=== PATIENT | male | born 1945 | race Two or more races ===

== ENCOUNTER 2017-11-28 13:14 | Inpatient (IN) | payer MEDICARE, OTHER ==
--- NOTE | 2017-11-28 13:51 | ERNOTE ---
Medical Problem HPI - Narrative Date of Service: 11/28/17 - General Chief Complaint: General Assessment Time Seen by Provider: 11/28/17 13:28 Source: patient Exam Limitations: no limitations - Immun/Allergies/Home Medications Immunizations: IMMUNIZATION HX History of Influenza Vaccine Yes Allergies/Adverse Reactions: Allergies No Known Allergies Allergy (Unverified 11/28/17 13:26) Home Medications: HOME MEDICATIONS ALPRAZolam [Xanax] 0.25 mg PO BID 11/28/17 [Last Taken Unknown] FLUoxetine HCL [Prozac] 40 mg PO DAILY 11/28/17 [Last Taken Unknown] Glimepiride 1 mg PO DAILY 11/28/17 [Last Taken Unknown] Melatonin [Melatin] 3 mg PO HS 11/28/17 [Last Taken Unknown] Simvastatin [Zocor] 20 mg PO HS 11/28/17 [Last Taken Unknown] metFORMIN HCL [Metformin HCl] 500 mg PO BID 11/28/17 [Last Taken Unknown] - History of Present History Narrative: Pt. with known dementia and anxiety with depression comes in from the ong with c/o increased combativeness and confusion and abnormal lab levels for 3 days. Pt. just arrived at this facility from home a week ago as he was unable to safely take care of himself at home anymore. Pt. and family are unaware of any heart and kidney disease and states that pt. BLE are more swollen than normal. Timing: getting worse Severity: moderate Modifying Factors - (Improves): Present: other - denies Modifying Factors - (Worsens): Present: other - denies Review of Systems - Review of Systems Constitutional: Present: no symptoms reported. Absent: fever, chills, weakness , fatigue, malaise EYE: Present: no symptoms reported ENT: Present: no symptoms reported Respiratory: Present: no symptoms reported. Absent: shortness of breath, cough , wheezing Cardiology: Present: no symptoms reported. Absent: chest pain, palpitations, edema Gastrointestinal/Abdominal: Present: no symptoms reported. Absent: nausea, vomiting, diarrhea, abdominal pain Genitourinary: Present: no symptoms reported. Absent: frequency, dysuria, decreased urinary output, discharge Musculoskeletal: Present: no symptoms reported. Absent: back pain, joint pain Skin: Present: no symptoms reported. Absent: rash, change in color Neurological: Present: no symptoms reported. Absent: headache, dizziness/light- headedness, weakness, numbness, tingling All Other Systems: All systems neg except as marked - Patient's Past Medical History Patient History - Medical: Alzheimer's Disease, Anxiety, Diabetes Type 2, Depression Patient History - Cardiac/Respiratory: Hypertension, Hyperlipidemia Patient History - Cancer: No Hx of Cancer Patient History - Surgical Procedures: No surgical history Patient History - Other: None - Social History Living Situations: long-term Abuse History: No History of abuse Psych History: Hx of Anxiety, Hx of Depression Alcohol Use: none Drug Use: none - Immunizations History of Influenza Vaccine: Yes Physical Exam - Physical Exam General Appearance: Present: wd/wn, alert, no apparent distress Head Exam: Present: normal inspection, no evidence of injury Eye Exam: Normal inspection: bilateral, PERRL: bilateral, EOMI: bilateral Ears, Nose, Throat: Present: normal ENT inspection, normal pharynx Neck: Present: normal inspection, nontender, supple, full range of motion. Absent: lymphadenopathy (R), lymphadenopathy (L) Respiratory: Present: no respiratory distress, normal breath sounds, no accessory muscle use, chest nontender, lungs clear. Absent: crackles, rales, rhonchi, stridor, wheezing Cardiovascular/Chest: Present: regular rate, rhythm, no murmur, normal peripheral pulses. Absent: gallop/S3, systolic murmur, diastolic murmur, friction rub Gastrointestinal/Abdominal: Present: normal bowel sounds, nontender, nondistended, soft, no organomegaly, hernia - umbilical Back Exam: Present: normal inspection, normal range of motion, no CVA tenderness , no vertebral tenderness Extremity Exam: Present: non-tender, normal range of motion, extremity edema - BLE +3 pitting. Absent: calf tenderness Neurological Exam: Present: alert, oriented, normal mood/affect, no motor/ sensory deficits, survey party chief II-XII nml as tested, normal cerebellar test Skin Exam: Present: warm/dry, pallor, other - dry skin B arms. Absent: skin rash ED Progress - Date and Time Seen: Date and Time: 11/28/17 14:[address] Aguilar and she will come see the pt. 11/28/17 15:22 Dr Aguilar agrees to admit pt. without any further orders. - Results and Orders Patient's Lab Results:: I have reviewed the patient's lab results. Results and Orders: Abnormal Lab Results 11/28/17 11/28/17 11/28/17 Range/Units 13:45 13:45 13:57 RBC 2.08 L (4.7-6.0) M/mm3 Hgb 6.7 L* (13.5-18.0) gm/dL Hct 20.5 L* (42.0-52.0) % MCH 32.2 H (27-31) pg MPV 9.8 H (6.0-9.5) fl Immature Gran % (Auto) 0.50 H (0.001-0.429) % Lymphocytes % 15.1 L (20-51) % Eosinophils % 4.1 H (0.0-3.0) % Lymphocytes # 1.0 L (1.5-3.5) k/mm3 Sodium 146 H (132-142) mmol/L Plasma Sodium 147 H (130-142) mmol/L Potassium 4.7 H (3.4-4.6) mmol/L Chloride 109 H (97-106) mmol/L Anion Gap 16.0 H (6.8-13.8) mmol/L BUN 75 H (6-23) mg/dL Creatinine 4.33 H D (0.4-1.4) mg/dL Est GFR (Non-Af Amer) 14 L (60-130) mL/min Random Glucose 132 H (70-110) mg/dL Albumin 3.1 L (3.4-5.0) gm/dl Urine Blood 5 H (NEGATIVE) /ul - Vital Signs Patient's Vital Signs:: I have reviewed the patient's vital signs. Vital Signs: Vital Signs 11/28/17 11/28/17 13:19 13:26 Temperature 36.3 C L 36.3 C L Pulse Rate 78 78 Respiratory 12 12 Rate Blood Pressure 149/83 149/83 O2 Sat by Pulse 100 100 Oximetry - EKG EKG read: Reviewed by me EKG Comments: SR with RBBB no obvious acute ST change - Progress/Reassessment Chief Complaint: General Assessment Departure Clinical Impression: Anemia Qualifiers: Anemia type: unspecified type Qualified Code(s): D64.9 - Anemia, unspecified Acute renal failure Qualifiers: Acute renal failure type: unspecified Qualified Code(s): N17.9 - Acute kidney failure, unspecified CHF (congestive heart failure) Qualifiers: Congestive heart failure type: unspecified Congestive heart failure chronicity : acute Qualified Code(s): I50.9 - Heart failure, unspecified - Departure Disposition: [facility] Condition: Fair
[2017-11-28 13:52] LABS: Mean Cell Volume 98.6 fl (78-100); Mean Corpuscular Hemoglobin 32.2 pg (27-31); Mean Corpuscular Hgb Conc 32.7 g/dl (32-36); Mean Platelet Volume 9.8 fl (6.0-9.5); Neutrophil # 4.7 K/mm3 (1.3-6.0); Neutrophil % 71.3 % (42-75.0); Platelet Count 245 K/mm3 (150-450); Red Blood Count 2.08 M/mm3 (4.7-6.0); Red Cell Distribution Width 13.3 % (11.5-14.0); White Blood Count 6.6 K/mm3 (4.0-10.5)
[2017-11-28 13:53] LABS: Hemoglobin 6.7 gm/dL (13.5-18.0)
[2017-11-28 13:54] LABS: Hematocrit 20.5 % (42.0-52.0)
[2017-11-28 14:01] LABS: Urine Bilirubin Negative (NEGATIVE); Urine Ketone Negative (NEGATIVE); Urine Nitrite Negative (NEGATIVE); Urine Protein Negative (NEGATIVE); Urine Urobilinogen Normal (NORMAL); Urine pH 6.5 pH (5.0-7.0)
[2017-11-28 14:07] LABS: ALT 29 U/L (19-67); AST 19 U/L (0-48); Albumin * 3.1 gm/dl (3.4-5.0); Alkaline Phosphatase * 91 U/L (50-170); BUN/Creatinine Ratio 17.3 (9.0-21.6); Bilirubin, Total 0.2 mg/dL (0.0-1.1); Blood Urea Nitrogen 75 mg/dL (6-23); Ca. Corrected For Albumin 9.1 mg/dL (8.4-10.2); Calcium * 8.7 mg/dL (7.9-10.9); Carbon Dioxide 25.7 mmol/L (24-32.6); Chloride 109 mmol/L (97-106); Glucose * 132 mg/dL (70-110); Potassium 4.7 mmol/L (3.4-4.6); Sodium 146 mmol/L (132-142); Total Protein 6.7 gm/dL (6.2-8.2)
[2017-11-28 14:08] LABS: Troponin I Less than 0.017 ng/ml (0.00-0.10)
[2017-11-28 14:10] LABS: Urine Appearance Clear; Urine Bacteria None Seen; Urine Blood 5 /ul (NEGATIVE); Urine Color Pale Yellow; Urine RBC TRACE /hpf (0-5); Urine WBC None Seen /hpf (0-5)
[2017-11-28 15:03] LABS: Prothrombin Time (Patient) 10.5 Seconds (9.0-11.0)
[2017-11-28 15:04] LABS: INR 1.05 INR (0.90-1.10)
[2017-11-28] MEDS ORDERED: NORMAL SALINE 1,000 ML IV ONE (15:34)
--- NOTE | 2017-11-28 16:18 | HP ---
Chief Complaint - Chief Complaint Date of Service: 11/28/17 Time of Service: 16:13 Chief Complaint: patient brought in for evaluation of combative behaviour from [place]. patient unable to give H/O due to dementia. History of Present Illness: Patient is a 72 -year-old WM with a history of DM, HTN, HLD, anxiety and memory loss due to dementia admitted to [facility] approximately 1 week ago who was brought in today to the ER for evaluation of combative behavior and difficulty in sleeping. Patient was found to have a H/H 6.7/20.5 and a BUN/ CR 75/4.33. Previous B UN/CR was 20/1.27 on 12/10/16. Patient is unable to give a history due to dementia. He seems to have lost weight, the exact amount is unknown. Had a long discussion with the children[daughter and son, daughter is the POA]. Would like to determine the cause of anemia even if treatment is not pursued. Patient was admitted for blood transfusion, IV fluids for a stay of at least 2 midnights. - Patient's Past Medical History Additional info: PAST MEDICAL HISTORY: Hypertension, Hyperlipidemia, T2 DM, anxiety and depression. Dementia most likely secondary to Alzheimer's.[ Sees Neurology]. Patient History - Cancer: No Hx of Cancer Patient History - Surgical Procedures: No surgical history Patient History - Other: None - Family History Mother Family History - Medical: - 80's - colon CA Father Family History - Medical: - 50's - lung CA - Social History Living Situations: fpc Abuse History: No History of abuse Psych History: Hx of Anxiety, Hx of Depression Smoking Status: Current every day smoker Cigarettes Packs Per Day: 2.0 - x 40 yrs, quit 2009 Have you smoked in the past 12 months: Yes Do you dip or chew tobacco: No Alcohol Use: none Drug Use: none - Immunizations History of Influenza Vaccine: Yes Review Of Systems (GEN) - Review of Systems Generalized/Overall Review: Present: Weight loss - loss of appetite. Absent: Chills, Fever Respiratory: Absent: Cough, Shortness of Breath Cardiac: Present: Edema. Absent: Chest Pain Abdominal: Absent: Nausea, Vomiting Neurological: Present: Other - memory loss, w/ agitation. Skin: Present: Dryness Immunizations: IMMUNIZATION HX History of Influenza Vaccine Yes Allergies/Adverse Reactions: Allergies Allergy/AdvReac Type Severity Reaction Status Date / Time No Known Allergies Allergy Verified 01/02/18 10:36 Home Medications: HOME MEDICATIONS Cholecalciferol (Vitamin D3) [Vitamin D] 2,000 unit PO DAILY #30 capsule [Last Taken 01/02/18 07:00] Omeprazole 40 mg PO DAILY #30 capsule. 12/03/17 [Last Taken 01/02/18 07:00] hydrALAZINE HCL [Apresoline] 25 mg PO TID #90 tab 12/03/17 [Last Taken 01/02/18 07:00] Acetaminophen [Tylenol] 650 mg PO Q6H PRN 01/02/18 [Last Taken Unknown] Bisacodyl [Dulcolax] 10 mg PO Q48H PRN 01/02/18 [Last Taken Unknown] Carvedilol [Coreg] 3.125 mg PO BID 01/02/18 [Last Taken 01/02/18 08:00] Clonazepam 2 mg PO HS 01/02/18 [Last Taken 01/01/18 20:00] Docusate Sodium [Stool Softener] 50 mg PO HS 01/02/18 [Last Taken 01/01/18 20:00 ] Furosemide [Lasix] 20 mg PO BID 01/02/18 [Last Taken 01/02/18 08:00] Mirtazapine [Remeron] 15 mg PO HS 01/02/18 [Last Taken 01/01/18 20:00] Multivit,Tx with Iron,Minerals [Thera-M] 1 each PO DAILY 01/02/18 [Last Taken 07:00] Wheat Dextrin [Benefiber] 2 tbs PO BID 01/02/18 [Last Taken 01/02/18 07:00] clonazePAM [Klonopin] 0.5 mg PO BID 01/02/18 [Last Taken 01/02/18 08:00] Exam - Exam Vital Signs: Vital Signs - Last Taken Temp 36.8 C 11/28/17 15:46 Pulse 75 11/28/17 15:46 Resp 16 11/28/17 15:46 BP 161/84 11/28/17 15:46 Pulse Ox 100 11/28/17 15:46 Constitutional: Present: Elderly, Thin and frail, Looks Older than stated age - alert, not oriented x3 , in NAD, cachectic. ENT Exam: Present: pharynx normal, dry mucous membranes Eye Exam: bilateral eye: PERRL, EOMI Neck: Present: normal inspection, trachea midline Respiratory: Present: no accessory muscle use, decreased breath sounds - bilaterally in both bases Cardiovascular/Chest: Present: regular rate, rhythm, systolic murmur. Absent: tachycardia Peripheral Pulses: carotid (R): 2+, carotid (L): 2+ Abdomen: Present: Normal bowel sounds, soft, nontender - large, umbilical hernia present[ soft, not incarcerated]. Extremity: Present: non-tender - 3+ pitting edema. Skin Exam: Present: warm/dry - With multiple excoriations., pallor Neurologic: Present: disoriented x 3 Appearance: Present: disheveled, impaired insight, impaired recent memory, impaired remote memory Diagnostic Studies: Laboratory Tests 11/28/17 13:45 WBC 6.6 Hgb 6.7 L* MCV 98.6 MCH 32.2 H Plt Count 245 11/28/17 13:45 Plasma Sodium 147 H Potassium 4.7 H Chloride 109 H Carbon Dioxide 25.7 BUN 75 H Creatinine 4.33 H D Est GFR (Non-Af Amer) 14 L Random Glucose 132 H Calcium Adj for Albumin 9.1 Total Bilirubin 0.2 AST 19 ALT 29 Alkaline Phosphatase 91 Total Protein 6.7 Albumin 3.1 L 11/28/17 11/28/17 11/28/17 13:45 14:10 14:30 Troponin I Less than 0.017 B-Natriuretic Peptide 1346 H Stool Occult Blood Negative Assessment/Plan - Narrative Narrative: 1. ANEMIA: H/H 6.7/20.5 on admission. Hemoccult negative. Patient being transfused with 2 units packed RBC. IV fluids in the form of normal saline being given. Check H&H on 11/29/2017. Protonix 40 mg IV every 24 hours. 2. CHRONIC KIDNEY DISEASE STAGE IV: BUN/CR on admission 75/4.33. BUN/CR 20/1.27 on 12/10/16. Hold all medication and hydrate patient cautiously. Bladder scan 275 mL on admission. Check CMP on 11/29/2017. 3. DEMENTIA: Per family, the patient has seen neurology and workup has been negative. Currently has not been on any medications. Check TSH, B12 levels. 4. OTHER CHRONIC MEDICAL CONDITIONS: Hypertension, hyperlipidemia, T2 DM: Continue to monitor. 5. DVT prophylaxis: No DVT prophylaxis due to anemia. CODE STATUS: DNR. - Assessment/Plan (1) Anemia Problem: Acute Qualifiers: Anemia type: iron deficiency Iron deficiency anemia type: chronic blood loss Qualified Code(s): D50.0 - Iron deficiency anemia secondary to blood loss (chronic) (2) Dementia Assessment: Most likely secondary to Alzheimer's disease Problem: Chronic Qualifiers: Dementia type: unspecified type Dementia behavioral disturbance: with behavioral disturbance Qualified Code(s): F03.91 - Unspecified dementia with behavioral disturbance (3) Chronic kidney disease (CKD) Problem: Chronic Qualifiers: Chronic kidney disease stage: stage 4 (severe) Qualified Code(s): N18.4 - Chronic kidney disease, stage 4 (severe)
[2017-11-28 17:26] LABS: Iron 19 mcg/dL (35-120); Transferrin Sat. (% Sat.) 6 % (15-55)
[2017-11-28] MEDS: PANTOPRAZOLE SODIUM 40 MG in NORMAL SALINE 100 ML IV SCH (19:19)
[2017-11-28 22:49] LABS: Mean Cell Volume 94.9 fl (78-100); Mean Corpuscular Hemoglobin 31.8 pg (27-31); Mean Corpuscular Hgb Conc 33.5 g/dl (32-36); Mean Platelet Volume 9.7 fl (6.0-9.5); Neutrophil # 3.7 K/mm3 (1.3-6.0); Neutrophil % 66.4 % (42-75.0); Platelet Count 199 K/mm3 (150-450); Red Blood Count 2.36 M/mm3 (4.7-6.0); Red Cell Distribution Width 13.8 % (11.5-14.0); White Blood Count 5.6 K/mm3 (4.0-10.5)
[2017-11-28 22:50] LABS: Hemoglobin 7.5 gm/dL (13.5-18.0)
[2017-11-28 22:51] LABS: Hematocrit 22.4 % (42.0-52.0)
--- NOTE | 2017-11-29 05:42 | PN ---
Subjective - Date and Time Seen Date: 11/29/17 Subjective Narrative: Pt examined this am. He has no complaints. Has been cooperative with cares according to nursing. Received 2 units of PRBC. No acute events overnight. Objective - Vitals Vitals: Last Vital Signs Temp 36.9 C 11/29/17 03:15 Pulse 70 11/29/17 03:15 Resp 18 11/29/17 03:15 BP 133/69 11/29/17 03:15 Pulse Ox 98 11/29/17 03:15 - Abnormal Lab Findings Abnormal Lab Findings: Abnormal Lab Results 11/28/17 Range/Units 22:45 RBC 2.36 L (4.7-6.0) M/mm3 Hgb 7.5 L* (13.5-18.0) gm/dL Hct 22.4 L* (42.0-52.0) % MCH 31.8 H (27-31) pg MPV 9.7 H (6.0-9.5) fl Monocytes % 9.5 H (0.0-9) % Eosinophils % 3.2 H (0.0-3.0) % Lymphocytes # 1.1 L (1.5-3.5) k/mm3 - Exam Constitutional: Present: Alert - to self only., No distress ENT Exam: Present: normal ENT inspection, hearing grossly normal Neck: Present: non-tender, full range of motion, supple Breasts: Present: Exam deferred Respiratory: Present: chest non-tender, lungs clear Cardiovascular/Chest: Present: normal peripheral pulses, regular rate, rhythm, no chest tenderness Abdomen: Present: Normal bowel sounds, soft, nontender /Rectal: Present: Exam deferred Extremity: Present: normal range of motion, non-tender, normal inspection Skin Exam: Present: no cyanosis Lymphatic: Present: no adenopathy Neurologic: Present: no motor/sensory deficits, alert Appearance: Present: impaired recent memory, impaired remote memory Eye contact: Present: cooperative, good eye contact, normal speech Thoughts: Present: no apparent hallucination Assessment/Plan Plan Narrative: Pt is a 72-yr-old with: 1.) Acute Renal Failure: Pt's Cr baseline is not known as he does not see our provider. [facility] charts -from [facility] show the last Cr known was 1.27 in 12/10/16. He is non-oliguric- made 1300ml in 24 hours. Renal failure likely acute on chronic CKD, but additional imaging- Renal US may provide additional information about kidney size and assist in distinction between Acute vs CKD. Nephrotoxic meds held- Lasix, Metfomin, Give gentle IVF hydration. BMP in am. Laboratory Test 11/25/17 11/28/17 11/29/17 10:00 13:45 05:45 Creatinine 5.00 H 4.33 H D 4.13 H 2.) Anemia: Hgb 6.7 on DOA. Given 2 units of PRBC. No sign of active blood loss or hx of NSAIDS. Hemoccult was negative. Suspect Anemia of CKD- he is normocytic normochromic. Consider checking serum iron, RTC, ferritin. 3.) Alzheimer's Dementia-Per family, the patient has seen neurology and workup has been negative. Currently has not been on any medications. Check TSH, B12 levels. 4.) Chronic stable conditions DM II- Accucheck ACHS, Metfomrin on hold due to poor kidney function. HTN HLD - Problems/Diagnosis (1) JAMAL (acute kidney injury) Problem: Acute (2) Anemia Problem: Acute Qualifiers: Anemia type: unspecified type Qualified Code(s): D64.9 - Anemia, unspecified (3) Diabetes Problem: Chronic Qualifiers: Diabetes mellitus type: type 2 (4) CHF (congestive heart failure) Problem: Acute Qualifiers: Congestive heart failure type: unspecified Congestive heart failure chronicity: acute Qualified Code(s): I50.9 - Heart failure, unspecified (5) Dementia Problem: Chronic Qualifiers: Alzheimer's disease onset: unspecified onset Dementia behavioral disturbance: with behavioral disturbance
[2017-11-29 06:06] LABS: Hematocrit 24.4 % (42.0-52.0); Mean Cell Volume 94.2 fl (78-100); Mean Platelet Volume 9.8 fl (6.0-9.5); Neutrophil # 3.4 K/mm3 (1.3-6.0); Neutrophil % 62.4 % (42-75.0); Platelet Count 196 K/mm3 (150-450); Red Blood Count 2.59 M/mm3 (4.7-6.0); Red Cell Distribution Width 13.8 % (11.5-14.0); White Blood Count 5.5 K/mm3 (4.0-10.5)
[2017-11-29 06:10] LABS: Hemoglobin 8.3 gm/dL (13.5-18.0)
[2017-11-29 06:18] LABS: Albumin * 2.7 gm/dl (3.4-5.0); Anion Gap 13.9 mmol/L (6.8-13.8); BUN/Creatinine Ratio 17.7 (9.0-21.6); Bilirubin, Total 0.3 mg/dL (0.0-1.1); Ca. Corrected For Albumin 9.3 mg/dL (8.4-10.2); Calcium * 8.6 mg/dL (7.9-10.9); Carbon Dioxide 25.6 mmol/L (24-32.6); Potassium 4.5 mmol/L (3.4-4.6); Total Protein 5.8 gm/dL (6.2-8.2)
[2017-11-29] MEDS ORDERED: NORMAL SALINE 1,000 ML IV PRN (07:07)
[2017-11-29] MEDS ORDERED: NORMAL SALINE 1,000 ML IV ONE (09:18)
[2017-11-29] MEDS: FLUoxetine HCL 20 MG CAPSULE PO SCH (09:20)
[2017-11-29] MEDS: DEXTROSE 5 % IN WATER 1,000 ML IV PRN ×2 (15:24→23:51)
[2017-11-29] MEDS: HYDROPHILIC OINTMENT 454 APPL JAR TP SCH ×2 (15:25→23:19)
[2017-11-29] MEDS: PANTOPRAZOLE SODIUM 40 MG in NORMAL SALINE 100 ML IV SCH (16:50)
[2017-11-29] MEDS ORDERED: risperiDONE 1 MG TABLET PO SCH (23:30)
[2017-11-30 06:34] LABS: Mean Corpuscular Hemoglobin 31.8 pg (27-31); Mean Corpuscular Hgb Conc 34.2 g/dl (32-36); Mean Platelet Volume 9.4 fl (6.0-9.5); Neutrophil # 2.5 K/mm3 (1.3-6.0); Neutrophil % 57.7 % (42-75.0); Platelet Count 177 K/mm3 (150-450); Red Blood Count 2.42 M/mm3 (4.7-6.0); Red Cell Distribution Width 13.6 % (11.5-14.0); White Blood Count 4.4 K/mm3 (4.0-10.5)
[2017-11-30 06:38] LABS: Hemoglobin 7.7 gm/dL (13.5-18.0)
[2017-11-30 06:39] LABS: Hematocrit 22.5 % (42.0-52.0)
[2017-11-30 06:59] LABS: Albumin * 2.5 gm/dl (3.4-5.0); Anion Gap 11.5 mmol/L (6.8-13.8); BUN/Creatinine Ratio 17.7 (9.0-21.6); Bilirubin, Total 0.3 mg/dL (0.0-1.1); Calcium * 8.1 mg/dL (7.9-10.9); Carbon Dioxide 24.6 mmol/L (24-32.6); Potassium 4.1 mmol/L (3.4-4.6); Total Protein 5.5 gm/dL (6.2-8.2)
[2017-11-30] MEDS ORDERED: ACETAMINOPHEN 325 MG TABLET PO ONE (07:00)
[2017-11-30] MEDS: HYDROPHILIC OINTMENT 454 APPL JAR TP SCH ×2 (09:17→21:29)
[2017-11-30] MEDS: FLUoxetine HCL 20 MG CAPSULE PO SCH (09:18)
[2017-11-30] MEDS: risperiDONE 0.25 MG TABLET PO SCH (12:02)
[2017-11-30] MEDS: SERTRALINE HCL 50 MG TABLET PO SCH (12:02)
--- NOTE | 2017-11-30 13:33 | PN ---
Subjective - Date and Time Seen Date: 11/30/17 Time: 13:11 Subjective Narrative: Patient became very confused last night requiring risperidone 1 mg at night. Ripped off his IV while obtaining a blood transfusion and currently being monitored at nurses station. Receiving another 2 units of packed RBC since H&H dropped down to 7.7/22.5 this morning. Patient remains asymptomatic and getting confused in the evenings. Objective - Review of Systems Generalized/Overall Review: Denies: Weakness, Chills, Fever Respiratory: Denies: Cough, Shortness of Breath Cardiac: Reports: Edema. Denies: Chest Pain Abdominal: Denies: Nausea, Vomiting, Abdominal Pain - Vitals Vitals: Vital Signs Temp 36.6 C 11/30/17 11:22 Pulse 81 11/30/17 11:22 Resp 16 11/30/17 11:22 BP 140/70 11/30/17 11:22 Pulse Ox 100 11/30/17 11:22 - Abnormal Lab Findings Abnormal Lab Findings: Laboratory Tests 11/28/17 11/30/17 13:45 06:31 WBC 6.6 4.4 Hgb 6.7 L* 7.7 L* Hct 20.5 L* 22.5 L* Plt Count 245 177 11/28/17 11/30/17 13:45 06:31 Plasma Sodium 147 H 139 Potassium 4.7 H 4.1 Chloride 109 H 106 Carbon Dioxide 25.7 24.6 BUN 75 H 68 H Creatinine 4.33 H D 3.85 H Est GFR (Non-Af Amer) 14 L 16 L Retroperitoneal ultrasound: 11/29/17: 1. Multiple bilateral renal cysts. 2. Enlarged prostate. 3. No mass/nephrolithiasis or hydronephrosis. 4. Prostate volume 44 mL. Prevoid volume is 84 mL. Bladder wall is well distended with normal contour and wall thickness. - Exam Constitutional: Present: Elderly, Thin and frail - confused, occasionally cooperative. ENT Exam: Present: hearing grossly normal, moist mucous membranes Neck: Present: normal inspection, trachea midline Respiratory: Present: lungs clear, no accessory muscle use Cardiovascular/Chest: Present: regular rate, rhythm. Absent: tachycardia Abdomen: Present: Normal bowel sounds, soft - Large umbilical hernia, good bowel sounds, nontender /Rectal: Present: Exam deferred Extremity: Present: normal range of motion, lower extremity edema - 2+ Skin Exam: Present: warm/dry, pallor Neurologic: Present: normal mood/affect, disoriented x 3 Assessment/Plan Plan Narrative: 1. ANEMIA: H/H 6.7/20.5 on admission. Hemoccult negative. Patient being transfused with 2 units packed RBC on 11/28/17. IV fluids in the form of normal saline being given. Protonix 40 mg IV every 24 hours. H/H7.7/22.5 on 11/30/17. Patient given 2 more units of packed RBC today. Will receive Feraheme 510 mg IV on 12/01. Dr. Thomas [ general surgery ]on consult for possible EGD/colonoscopy in the next 1-2 days. 2. ACUTE KIDNEY INJURY: BUN/CR on admission 75/4.33. BUN/CR 20/1.27 on 12/10/16. Hold all medication and hydrate patient cautiously. Bladder scan 275 mL on admission. B UN/CR 68/ 3.35 on 11/30/17. 3. DEMENTIA: Per family, the patient has seen neurology and workup has been negative. Currently has not been on any medications. TSH, B12 levels fairly normal. 4. OTHER CHRONIC MEDICAL CONDITIONS: Hypertension, hyperlipidemia, T2 DM: Continue to monitor. 5. DVT prophylaxis: No DVT prophylaxis due to anemia. CODE STATUS: DNR. - Problems/Diagnosis (1) Anemia Problem: Acute Qualifiers: Anemia type: unspecified type Qualified Code(s): D64.9 - Anemia, unspecified (2) JAMAL (acute kidney injury) Problem: Acute (3) Dementia Problem: Chronic Qualifiers: Alzheimer's disease onset: unspecified onset Dementia behavioral disturbance: with behavioral disturbance
[2017-11-30] MEDS ORDERED: FERUMOXYTOL 30 MG/ML VIAL IV ONE (15:00)
[2017-11-30] MEDS ORDERED: SODIUM, POTASSIUM,MAG SULFATES 1 KIT KIT PO ONE (16:00)
[2017-11-30 17:52] LABS: Hematocrit 30.7 % (42.0-52.0); Hemoglobin 10.6 gm/dL (13.5-18.0)
[2017-11-30] MEDS ORDERED: risperiDONE 0.25 MG TABLET PO SCH (21:00)
[2017-11-30] MEDS: DEXTROSE 5 % IN WATER 1,000 ML IV PRN (22:47)
[2017-12-01] MEDS: DEXTROSE 5 % IN WATER 1,000 ML IV PRN (05:30)
[2017-12-01 06:11] LABS: Hematocrit 31.1 % (42.0-52.0); Hemoglobin 10.9 gm/dL (13.5-18.0); Mean Cell Volume 89.6 fl (78-100); Mean Corpuscular Hemoglobin 31.4 pg (27-31); Mean Platelet Volume 9.4 fl (6.0-9.5); Neutrophil # 3.2 K/mm3 (1.3-6.0); Neutrophil % 62.7 % (42-75.0); Platelet Count 224 K/mm3 (150-450); Red Blood Count 3.47 M/mm3 (4.7-6.0); White Blood Count 5.2 K/mm3 (4.0-10.5)
[2017-12-01] MEDS: DEXTROSE 5%-NORMAL SALINE 1,000 ML IV PRN ×2 (06:15→18:22)
[2017-12-01 06:19] LABS: Anion Gap 11.2 mmol/L (6.8-13.8); BUN/Creatinine Ratio 17.7 (9.0-21.6); Carbon Dioxide 28.8 mmol/L (24-32.6); Estimated Creat Clear 23.4
[2017-12-01] MEDS ORDERED: FERUMOXYTOL 510 MG in NORMAL SALINE 100 ML IV ONE (09:00)
[2017-12-01] MEDS ORDERED: SERTRALINE HCL 50 MG TABLET PO SCH (09:00)
[2017-12-01] MEDS ORDERED: FERUMOXYTOL 30 MG/ML VIAL IV ONE (09:00)
[2017-12-01] MEDS ORDERED: risperiDONE 0.25 MG TABLET PO SCH (09:00)
[2017-12-01] MEDS: HYDROPHILIC OINTMENT 454 APPL JAR TP SCH ×2 (09:48→22:30)
[2017-12-01] MEDS ORDERED: DEXTROSE 5%-NORMAL SALINE 1,000 ML IV ONE (12:25)
[2017-12-01] MEDS ORDERED: RINGER'S SOLUTION,LACTATED 1,000 ML IV ONE (13:00)
[2017-12-01] MEDS: SERTRALINE HCL 50 MG TABLET PO SCH (13:35)
[2017-12-01] MEDS: risperiDONE 0.25 MG TABLET PO SCH (13:35)
--- NOTE | 2017-12-01 17:23 | CONS ---
[facility] - General Date of Service: 11/29/17 Source: patient, RN/MD, RN notes reviewed Exam Limitations: other - dementia - History of Present Illness Initial Comments: He was brought from [facility] to the ER for evaluation of combative behavior. In the couse of w/u he was found to be profoundly anemic. He has not been here before. Patient cannot give useful history. No blood has been seen in his stool. Timing/Duration: unsure Associated Symptoms: denies symptoms Allergies/Adverse Reactions: Allergies No Known Allergies Allergy (Unverified 11/28/17 13:26) Home Medications: Home Medications Medication Instructions Recorded Last Taken ALPRAZolam [Xanax] 0.25 mg PO BID 11/28/17 Unknown Aspirin/Acetaminophen/Caffeine 2 each PO PRN 11/28/17 Unknown [Excedrin Extra Strength Caplet] FLUoxetine HCL [Prozac] 40 mg PO DAILY 11/28/17 Unknown Glimepiride 1 mg PO DAILY 11/28/17 Unknown Melatonin [Melatin] 3 mg PO HS 11/28/17 Unknown Simvastatin [Zocor] 20 mg PO HS 11/28/17 Unknown metFORMIN HCL [Metformin HCl] 500 mg PO BID 11/28/17 Unknown - Patient's Past Medical History Patient History - Medical: Alzheimer's Disease, Anxiety, Diabetes Type 2, Dementia, Depression Patient History - Cardiac/Respiratory: Hypertension, Hyperlipidemia Patient History - Cancer: No Hx of Cancer Patient History - Surgical Procedures: No surgical history Patient History - Other: None - Family History Family History:: no familial bleeding tendencies - Family History Mother Family History - Medical: , Diabetes Type 2 Family History - Cardiac/Respiratory: Hypertension, Hyperlipidemia Family History - Cancer: Colon Father Family History - Medical: Family History - Cancer: Lung - Social History Living Situations: care home Abuse History: No History of abuse Psych History: Hx of Anxiety, Hx of Depression Smoking Status: Current every day smoker Cigarettes Packs Per Day: 2.0 - x 40 yrs, quit 2009 Have you smoked in the past 12 months: Yes Do you dip or chew tobacco: No Alcohol Use: none Drug Use: none - Immunizations History of Influenza Vaccine: Yes Procedures TRANSFUSE NONAUT RED BLOOD CELLS IN PERIPH VEIN, PERC (11/28/17) Medications - Medications Current Medications: Current Medications Dextrose/Sodium Chloride (Dextrose 5%-0.9% Ns) 1,000 mls @ 175 mls/hr IV .Q5H43M PRN PRN Reason: HYDRATION Stop: 12/30/17 12:34 Last Admin: 12/01/17 06:15 Dose: 175 mls/hr Multi-Ingredient Ointment (Aquaphilic Ointment) 1 appl TP BID [facility] Stop: 12/29/17 12:01 Last Admin: 12/01/17 09:48 Dose: 1 appl Risperidone (Risperdal) 0.25 mg PO DAILY [facility] Stop: 12/30/17 11:41 Last Admin: 12/01/17 13:35 Dose: 0.25 mg Sertraline HCl (Zoloft) 50 mg PO DAILY [facility] Stop: 12/30/17 11:41 Last Admin: 12/01/17 13:35 Dose: 50 mg Review of Systems - Review of Systems Narrative: Unobtainable due to dementia although patient denies pain, heartburn or bowel problems Physical Examination - Exam Vital Signs: Vital Signs - Last Taken Temp 36.8 L 11/29/17 11:22 Pulse 78 11/29/17 11:22 Resp 18 11/29/17 11:22 BP 134/78 11/29/17 11:22 Pulse Ox 99 11/29/17 11:22 O2 Oxygen Delivery Method Room Air Constitutional: Present: Alert, Cooperative, No distress, Other - Oriented to name only. Answers yes and no but cannot supply histoy ENT Exam: Present: other - STSG to right scalp Eye Exam: bilateral eye: normal inspection Neck: Present: normal inspection Respiratory: Present: no respiratory distress Cardiovascular/Chest: Present: regular rate, rhythm Abdomen: Present: other - denies pain or tenderness, umbilical hernia/reducible /Rectal: Present: Exam deferred Extremity: Present: normal range of motion, no calf tenderness Skin Exam: Present: pallor Neurologic: Present: sawmill tally clerk II-XII nml as tested, normal cerebellar test Appearance: Present: impaired recent memory, impaired remote memory Eye contact: Present: cooperative, good eye contact, normal speech Thoughts: Present: other - dementia - Results and Findings: Lab/Microbiology results last 24 hrs: Abnormal/Pending Laboratory Last 24 HRS 12/01/17 12/01/17 11/30/17 05:45 05:45 07:02 RBC 3.47 L Hgb 10.9 L 10.6 L Hct 31.1 L 30.7 L MCH 31.4 H RDW 15.0 H Lymphocytes % 19.0 L Monocytes % 11.5 H Eosinophils % 5.8 H Lymphocytes # 1.0 L BUN 61 H Creatinine 3.45 H D Est GFR (Non-Af Amer) 19 L Random Glucose 118 H - Assessments/Findings (1) Anemia Diagnosis(s): Ideally upper and lower GI endoscopy as he has had no prior colon studies. The colon prep is best done in hospital so will schedule prep for EGD and colonoscopy on . Problem: Acute Qualifiers: Anemia type: unspecified type Qualified Code(s): D64.9 - Anemia, unspecified
--- NOTE | 2017-12-01 17:43 | OR ---
Operative Report - Dictated Report Narrative: Operative Report Date of operation: 12/01/2017 Preoperative diagnosis: Anemia Postoperative diagnosis: Gastritis and duodenitis with evidence of chronic blood loss. (Pathology and CLOtest pending). Diverticulosis otherwise normal colonoscopy to the cecum Operation: EGD with biopsies. Colonoscopy Surgeon: Dr Thomas Anesthesia: HARDY TA CRNA Indications for procedure: The patient is a 72-year-old male with dementia who was brought to the emergency room for evaluation of combative behavior. He is found to be profoundly anemic. No useful history can be obtained from the patient. He has had no previous dedicated colon studies. Findings: Significant gastritis with evidence of chronic low-grade bleeding ( coffee grounds). Significant duodenitis (pathology and CLOtest pending) Diverticulosis otherwise normal colonoscopy to the cecum Narrative of procedure: The patient was identified preoperatively, and prior to the administration of anesthetic a multidisciplinary timeout was observed EGD: With the patient in the recumbent position, a bite-block was placed, intravenous sedation was administered, and the patient's eyes covered with a towel. The flexible fiberoptic gastroscope was advanced into the posterior pharynx which appeared normal. The supraglottic larynx appeared normal. The cords appeared normal, moved well, and opposed in the midline. The scope was advanced under direct vision into the proximal esophagus which appeared normal. The esophagus appeared freely distensible with normal mucosa. The esophageal mucosa appeared normal down to the gastroesophageal junction which was sharp and noninflamed. There was no evidence of a Betty-Tabor tear, significant esophagitis, or varices. The GE junction appeared normally distensible. The scope was advanced into the stomach which was insufflated with air. There was a large amount of bilious material in the stomach which was carefully suctioned prior to continuing the exam. The gastric mucosa was erythematous throughout with several flecks of coffee ground material. No bhavani ulcers or neoplastic lesions were appreciated including a retroflex view of the gastric fundus. The pylorus appeared patent. The scope was advanced into the duodenal bulb which appeared markedly inflamed but no bhavani ulcer was present. There was evidence of reflux. The scope was advanced further to the horizontal portion of the duodenum which appeared normal, specifically the villous architecture appeared well preserved and clear bile was present. The scope was slowly withdrawn through the duodenal bulb with confirmation that no active ulcer was present. The scope was withdrawn into the stomach and employee's representative biopsies of gastric mucosa obtained for CLOtest and pathology. The biopsy sites were seen to be hemostatic. The insufflated air was removed, the scope withdrawn from the patient, and this portion of the procedure terminated. COLONOSCOPY: The patient was then placed in the left lateral position, and the perineum was inspected. There was no evidence of pilonidal disease or skin breakdown. The external appearance of the anus was normal. Sphincter tone was good. The flexible fiberoptic colonoscope was inserted into the rectum which was insufflated with air. The rectal mucosa and submucosal vascular pattern appeared normal. There was residual liquid stool however this could be suctioned sufficient for diagnostic purposes. The scope was advanced through the sigmoid colon, which contained several large not impacted noninflamed diverticular openings. The scope was advanced up the descending colon, and around the splenic flexure where the triangular haustral architecture of the transverse colon was seen. The scope was advanced across the transverse colon, around the hepatic flexure to the cecum, where the confluence of tenia and the ileocecal valve were identified. The mucosa at this level appeared normal. The scope was then slowly withdrawn in a circular fashion so that all aspects of colonic mucosa were inspected. The colon was relatively normal in course and caliber. The haustral architecture appeared well preserved throughout with no evidence of external compression. The mucosa and submucosal vascular pattern appeared normal, specifically there was no gross evidence to suggest colitis or inflammatory bowel disease and no AV malformations were seen. The diverticulosis was mild in degree and confined primarily to the sigmoid colon. No polyps were encountered. The scope was gradually withdrawn to the level of the rectum. As much insufflated air as possible was removed. The scope was withdrawn from the patient and the procedure terminated. The patient tolerated the anesthetic and procedure well without complication and was transferred back to his room awake and in stable condition. Reviewed and electronically signed
[2017-12-01] MEDS: risperiDONE 1 MG TABLET PO SCH ×2 (19:28→22:29)
[2017-12-01] MEDS: MIRTAZAPINE 15 MG TABLET PO SCH (19:29)
[2017-12-02] MEDS: DEXTROSE 5%-NORMAL SALINE 1,000 ML IV PRN ×2 (01:19→06:45)
--- NOTE | 2017-12-02 06:19 | PN ---
Subjective - Date and Time Seen Date: 12/02/17 Time: 06:16 Subjective Narrative: Patient was very confused overnight and pulled out his IV, he calm down a few hours after getting Risperidone 1mg q HS. He his currently resting comfortable. Objective - Review of Systems Generalized/Overall Review: Reports: No Symptoms Reported EENTM: Reports: No Symptoms Reported Respiratory: Reports: No Symptoms Reported Cardiac: Reports: No Symptoms Reported Abdominal: Reports: No Symptoms Reported Genitourinary Symptoms: Reports: No Symptoms Reported Musculoskeletal Complaints: Reports: No Symptoms Reported Neurological: Reports: No Symptoms Reported Skin: Reports: No Symptoms Reported Endocrine: Reports: No Symptoms Reported - Vitals Vitals: Last Vital Signs Temp 36.9 C 12/01/17 21:49 Pulse 68 12/02/17 03:00 Resp 20 12/02/17 03:00 BP 166/84 12/02/17 03:00 Pulse Ox 97 12/02/17 03:00 - Abnormal Lab Findings Abnormal Lab Findings: Abnormal Lab Results 12/01/17 Range/Units 05:45 BUN 61 H (6-23) mg/dL Creatinine 3.45 H D (0.4-1.4) mg/dL Est GFR (Non-Af Amer) 19 L (60-130) mL/min Random Glucose 118 H (70-110) mg/dL - Exam Constitutional: Present: Well developed, No distress, Elderly, Thin and frail. Absent: Alert, Cooperative ENT Exam: Present: hearing grossly normal Neck: Present: non-tender, full range of motion Respiratory: Present: chest non-tender, lungs clear, normal breath sounds, no respiratory distress Cardiovascular/Chest: Present: normal peripheral pulses, regular rate, rhythm, no chest tenderness, no edema Abdomen: Present: Normal bowel sounds, soft, nontender, nondistended /Rectal: Present: Exam deferred Extremity: Present: normal range of motion, non-tender Skin Exam: Present: warm/dry Neurologic: Present: normal mood/affect, disoriented x 3 Appearance: Present: impaired insight, impaired recent memory Eye contact: Present: uncooperative Assessment/Plan Plan Narrative: Anemia On adm H/H 6.7/20.5 ----> S/P 4 Unit PRBC H/H 10.9/31.1 Stool occult blood negative Ferahema 510mg IV x1 12/01/16 EGD/ Colonoscopy-->Gastritis and duodenitis with evidence of chronic blood loss. (Pathology and CLOtest pending). Diverticulosis otherwise normal colonoscopy to the cecum Continue to monitor CBC Acute Kidney injury On adm BUN/Cre---->75/4.33---> 68/3.85--->61/3.45 Continue with Gently hydration Avoid nephrotoxic agents Monitor I/O and weight daily Retroperitoneal ultrasound: 11/29/17: 1. Multiple bilateral renal cysts. 2. Enlarged prostate. 3. No mass/nephrolithiasis or hydronephrosis. 4. Prostate volume 44 mL. Prevoid volume is 84 mL. Bladder wall is well distended with normal contour and wall thickness. Dementia Per family, the patient has seen neurology and workup has been negative. Currently has not been on any medications. TSH, B12 levels fairly normal. He was started on Risperidone 1mg Q Hs and Risperidone 0.25mg Q day and tolerating well Continue with supportive care and periodic re-orientation. Code status: DNR DVT prophylaxis: No DVT prophylaxis due to anemia. GI ppx: Protonix Time 20 minutes and case discussed with Dr Aguilar. - Problems/Diagnosis (1) Gastritis and duodenitis Problem: Acute (2) Diabetes Problem: Chronic Qualifiers: Diabetes mellitus type: type 2 (3) JAMAL (acute kidney injury) Problem: Acute (4) Acute renal failure Problem: Acute Qualifiers: Acute renal failure type: unspecified Qualified Code(s): N17.9 - Acute kidney failure, unspecified (5) Anemia Problem: Acute Qualifiers: Anemia type: unspecified type Qualified Code(s): D64.9 - Anemia, unspecified (6) Dementia Problem: Chronic Qualifiers: Alzheimer's disease onset: unspecified onset Dementia behavioral disturbance: with behavioral disturbance
[2017-12-02] MEDS ORDERED: FERUMOXYTOL 510 MG in NORMAL SALINE 100 ML IV ONE (09:00)
[2017-12-02] MEDS ORDERED: FERUMOXYTOL 30 MG/ML VIAL IV SCH (09:00)
[2017-12-02 09:12] LABS: Hematocrit 28.5 % (42.0-52.0); Hemoglobin 9.8 gm/dL (13.5-18.0); Mean Cell Volume 90.8 fl (78-100); Mean Corpuscular Hemoglobin 31.2 pg (27-31); Mean Corpuscular Hgb Conc 34.4 g/dl (32-36); Mean Platelet Volume 9.1 fl (6.0-9.5); Neutrophil # 3.5 K/mm3 (1.3-6.0); Neutrophil % 64.5 % (42-75.0); Platelet Count 209 K/mm3 (150-450); Red Blood Count 3.14 M/mm3 (4.7-6.0); Red Cell Distribution Width 14.6 % (11.5-14.0); White Blood Count 5.5 K/mm3 (4.0-10.5)
[2017-12-02 09:29] LABS: Albumin * 2.6 gm/dl (3.4-5.0); Anion Gap 13.8 mmol/L (6.8-13.8); BUN/Creatinine Ratio 15.4 (9.0-21.6); Bilirubin, Total 0.3 mg/dL (0.0-1.1); Ca. Corrected For Albumin 9.5 mg/dL (8.4-10.2); Calcium * 8.7 mg/dL (7.9-10.9); Carbon Dioxide 24.7 mmol/L (24-32.6); Potassium 3.5 mmol/L (3.4-4.6); Total Protein 5.7 gm/dL (6.2-8.2)
[2017-12-02] MEDS: HYDROPHILIC OINTMENT 454 APPL JAR TP SCH ×2 (10:42→20:29)
[2017-12-02] MEDS: SERTRALINE HCL 50 MG TABLET PO SCH (10:42)
[2017-12-02] MEDS: risperiDONE 0.25 MG TABLET PO SCH (10:52)
--- NOTE | 2017-12-02 12:03 | PN ---
Subjective - Date and Time Seen Date: 12/01/17 Time: 11:56 Subjective Narrative: patient denies any C/O. Currently NPO for EGD and colonoscopy in the afternoon. On IV fluids. Patient very restless and not sleeping at night. Did try risperidone 0.5 to 1 mg on 2 nights which was not very effective. Objective - Review of Systems Generalized/Overall Review: Reports: Weight loss. Denies: Weakness Respiratory: Denies: Cough, Shortness of Breath Cardiac: Reports: Edema. Denies: Chest Pain Abdominal: Denies: Nausea, Vomiting - Vitals Vitals: vital signs 12/01/17 12:17 Temperature 36.9 C Pulse Rate 71 Respiratory 18 Rate Blood Pressure 155/84 O2 Sat by Pulse 98 Oximetry - Abnormal Lab Findings Abnormal Lab Findings: Lab Results 12/01/17 05:45 WBC 5.2 Hgb 10.9 L Hct 31.1 L Plt Count 224 12/01/17 05:45 Plasma Sodium 140 Potassium 4.0 Chloride 104 Carbon Dioxide 28.8 BUN 61 H Creatinine 3.45 H D Est GFR (Non-Af Amer) 19 L Random Glucose 118 H - Exam Constitutional: Present: Elderly, Thin and frail - alert and confused, cooperative in AM ENT Exam: Present: hearing grossly normal, dry mucous membranes Neck: Present: normal inspection, trachea midline Respiratory: Present: normal breath sounds, no accessory muscle use Cardiovascular/Chest: Present: regular rate, rhythm. Absent: tachycardia Abdomen: Present: Normal bowel sounds, soft, nontender - large umbilical herrnia present. Skin Exam: Present: warm/dry, pallor Assessment/Plan Plan Narrative: 1. ANEMIA: H/H 6.7/20.5 on admission. Hemoccult negative. Patient being transfused with 2 units packed RBC on 11/28/17. IV fluids in the form of normal saline being given. Protonix 40 mg IV every 24 hours. H/H7.7/22.5 on 11/30/17. Patient given 2 more units of packed RBC 11/30/17. Receive Feraheme 510 mg IV on 12/01/17 as tsat was 6%. Dr. Thomas [ general surgery ] on consult- possible EGD/colonoscopy this afternoon. 2. ACUTE KIDNEY INJURY: BUN/CR on admission 75/4.33. BUN/CR 20/1.27 on 12/10/16. Hold all medication and hydrate patient cautiously. Bladder scan 275 mL on admission. B UN/CR 61/ 3.45 on 12/01/17. 3. DEMENTIA: Per family, the patient has seen neurology and workup has been negative. Currently has not been on any medications. TSH, B12 levels fairly normal. 4. OTHER CHRONIC MEDICAL CONDITIONS: Hypertension, hyperlipidemia, T2 DM: Continue to monitor. 5. DVT prophylaxis: No DVT prophylaxis due to anemia. CODE STATUS: DNR. He - Problems/Diagnosis (1) Anemia Problem: Acute Qualifiers: Anemia type: iron deficiency (2) JAMAL (acute kidney injury) Problem: Acute (3) Dementia Problem: Chronic Qualifiers: Alzheimer's disease onset: unspecified onset Dementia behavioral disturbance: with behavioral disturbance
[2017-12-02] MEDS: hydrALAZINE HCL 10 MG TABLET PO SCH ×2 (12:20→20:28)
[2017-12-02] MEDS: DEXTROSE 5 % IN WATER 1,000 ML IV PRN ×2 (12:52→18:53)
[2017-12-02] MEDS: MIRTAZAPINE 15 MG TABLET PO SCH (20:29)
[2017-12-03] MEDS: hydrALAZINE HCL 10 MG TABLET PO SCH (05:47)
[2017-12-03 05:50] LABS: Hematocrit 28.4 % (42.0-52.0); Hemoglobin 9.7 gm/dL (13.5-18.0); Mean Cell Volume 91.3 fl (78-100); Mean Corpuscular Hemoglobin 31.2 pg (27-31); Mean Corpuscular Hgb Conc 34.2 g/dl (32-36); Mean Platelet Volume 9.3 fl (6.0-9.5); Neutrophil # 3.5 K/mm3 (1.3-6.0); Neutrophil % 58.5 % (42-75.0); Platelet Count 190 K/mm3 (150-450); Red Blood Count 3.11 M/mm3 (4.7-6.0); Red Cell Distribution Width 14.2 % (11.5-14.0)
[2017-12-03 06:00] LABS: Anion Gap 13.5 mmol/L (6.8-13.8); BUN/Creatinine Ratio 14.3 (9.0-21.6); Calcium * 8.4 mg/dL (7.9-10.9); Carbon Dioxide 25.2 mmol/L (24-32.6); Estimated Creat Clear 26.8; Potassium 3.7 mmol/L (3.4-4.6)
[2017-12-03] MEDS: DEXTROSE 5 % IN WATER 1,000 ML IV PRN (06:38)
--- NOTE | 2017-12-03 07:23 | DS ---
<LaurenMarlineparamjit - Last Filed: 12/03/17 19:34> (1) Anemia Problem: Acute QualifierTitle: Anemia type: iron deficiency (2) JAMAL (acute kidney injury) Problem: Acute (3) Dementia Problem: Chronic QualifierTitle: Alzheimer's disease onset: unspecified onset Dementia behavioral disturbance: with behavioral disturbance [facility] Condition: Undetermined Referrals: Bro Fowler MD [Primary Care Provider] - Problem Oriented Discharge Instructions to Patient/Family: Acute Kidney Injury , Gastritis, Adult, [id number], Iron Deficiency Anemia, Adult, Duodenitis Additional Patient Instructions (free text): Make sure patient has 8 glasses of water to drink per day Aspiration Precautions, upright 30 minutes after eating Ambulate patient 3 to 4 times per day Elevate legs at bedtime Ensure or Health Shake BID LAB- CBC, CMP 12/08. Prescriptions (Any new or edited meds): Cholecalciferol (Vitamin D3) [Vitamin D] 2,000 unit PO DAILY #30 capsule hydrALAZINE HCL [Apresoline] 25 mg PO TID #90 tab Hydrophilic Ointment [Aquaphilic Ointment] 1 appl TP BID #1 jar Mirtazapine [Remeron] 7.5 mg PO 1900 #30 tablet Multivit-Min/Iron/Folic Acid/K [Multi-Day Plus Minerals Tablet] 1 each PO DAILY #30 tablet Omeprazole 40 mg PO DAILY #30 capsule.dr Brand/Docusate Sodium [Senna-Docusate Sodium Tablet] 1 each PO HS #30 tablet Complete Home Medications List: Complete Home Medication List: Cholecalciferol (Vitamin D3) [Vitamin D] 2,000 unit PO DAILY #30 capsule Hydrophilic Ointment [Aquaphilic Ointment] 1 appl TP BID #1 jar 12/03/17 Mirtazapine [Remeron] 7.5 mg PO 1900 #30 tablet 12/03/17 Multivit-Min/Iron/Folic Acid/K [Multi-Day Plus Minerals Tablet] 1 each PO DAILY #30 tablet 12/03/17 Omeprazole 40 mg PO DAILY #30 capsule. 12/03/17 Cathie/Docusate Sodium [Senna-Docusate Sodium Tablet] 1 each PO HS #30 tablet 12/03/17 hydrALAZINE HCL [Apresoline] 25 mg PO TID #90 tab 12/03/17 Amb Orders for Discharge: CBC Time Frame: 12/08/17, Location: Determined By Patient Comprehensive Metabolic Panel Time Frame: 12/08/17, Location: Determined By Patient <Oswaldo Dasilva - Last Filed: 12/04/17 03:59> (1) Gastritis and duodenitis Problem: Acute (2) Diabetes Problem: Chronic Qualifiers: Diabetes mellitus type: type 2 (3) JAMAL (acute kidney injury) Problem: Acute (4) Anemia Problem: Acute Qualifiers: Anemia type: iron deficiency (5) Dementia Problem: Chronic Qualifiers: Alzheimer's disease onset: unspecified onset Dementia behavioral disturbance: with behavioral disturbance Description of Stay: Patient is a 72 -year-old WM with a history of DM, HTN, HLD, anxiety and memory loss due to dementia admitted to [facility] approximately 1 week ago who was brought to ER for evaluation of combative behavior and difficulty in sleeping. Patient was found to have a H/H 6.7/20.5 and a BUN/CR 75/4.33. Previous BUN/CR was 20/1.27 on 12/10/16---.05/23/17 BUN/CRE 23/1.40 GFR 40. Patient is unable to give a history due to dementia. He seems to have lost weight, the exact amount is unknown. During this adm pt remains medically stable, On adm H/H 6.7/20.5 ----> S/P 4 Unit PRBC POST H/H 9.7/28.4,Stool occult blood negative, Ferahema 510mg IV x2 DOSES. 12/01/16 EGD/ Colonoscopy--> Gastritis and duodenitis with evidence of chronic blood loss. (Pathology and CLOtest pending).Diverticulosis otherwise normal colonoscopy to the cecum. He will f/U with PCP for CBC and continue with oral iron. Acute Kidney injury On adm BUN/Cre---->75/4.33---> 68/3.85--->61/3.45--->43/3.01 have the patient drink 8 glass water daily Avoid nephrotoxic agents Monitor I/O and weight daily, he will need to have F/U with PCP and monitor BMP Retroperitoneal ultrasound: 1/16/18: 1. Multiple bilateral renal cysts. 2. Enlarged prostate. 3. No mass/nephrolithiasis or hydronephrosis. 4. Prostate volume 44 mL. Prevoid volume is 84 mL. Bladder wall is well distended with normal contour and wall thickness. Dementia Per family, the patient has seen neurology and workup has been negative. Currently has not been on any medications. TSH, B12 levels fairly normal. He was started on Risperidone which was later D/C and started on Remeron 7.5mg daily. Continue with supportive care and periodic re-orientation. Time 45 minutes and case discussed with Dr Aguilar Procedures Performed: none List Procedures: Preoperative diagnosis: Anemia Postoperative diagnosis: Gastritis and duodenitis with evidence of chronic blood loss. (Pathology and CLOtest pending). Diverticulosis otherwise normal colonoscopy to the cecum Operation: EGD with biopsies. Colonoscopy Results and Findings: Laboratory Tests 11/28/17 11/28/17 11/29/17 13:47 14:10 05:45 WBC RBC Hgb Hct MCV MCH MCHC RDW Plt Count Sodium 146 H Plasma Sodium 145 H Potassium 4.5 Chloride 111 H Carbon Dioxide 25.6 Anion Gap 13.9 H BUN 73 H Creatinine 4.13 H Est GFR (Non-Af Amer) 15 L BUN/Creatinine Ratio 17.7 Random Glucose 59 L D Iron 19 L TIBC 316 Transferrin % Sat 6 L Total Bilirubin 0.3 AST 68 H ALT 61 Alkaline Phosphatase 85 B-Natriuretic Peptide 1346 H Total Protein 5.8 L Albumin 2.7 L TSH 11/29/17 11/30/17 11/30/17 05:45 06:31 06:31 WBC 4.4 RBC 2.42 L Hgb 7.7 L* Hct 22.5 L* MCV 93.0 MCH 31.8 H MCHC 34.2 RDW 13.6 Plt Count 177 Sodium Plasma Sodium Potassium Chloride Carbon Dioxide Anion Gap BUN Creatinine Est GFR (Non-Af Amer) BUN/Creatinine Ratio Random Glucose Iron TIBC Transferrin % Sat Total Bilirubin AST ALT Alkaline Phosphatase B-Natriuretic Peptide Total Protein 5.5 L Albumin 2.5 L TSH 5.543 H 12/02/17 12/03/17 12/03/17 09:09 05:40 05:40 WBC 6.0 RBC 3.11 L Hgb 9.7 L Hct 28.4 L MCV 91.3 MCH 31.2 H MCHC 34.2 RDW 14.2 H Plt Count 190 Sodium 146 H 142 Plasma Sodium 147 H 143 H Potassium 3.5 3.7 Chloride 111 H 107 H Carbon Dioxide 24.7 25.2 Anion Gap 13.8 13.5 BUN 48 H 43 H Creatinine 3.12 H 3.01 H Est GFR (Non-Af Amer) 21 L 22 L BUN/Creatinine Ratio 15.4 14.3 Random Glucose 143 H 163 H Iron TIBC Transferrin % Sat Total Bilirubin 0.3 AST 17 ALT 36 Alkaline Phosphatase 81 B-Natriuretic Peptide Total Protein 5.7 L Albumin 2.6 L TSH Discharge Disposition: [facility] Discharge Activity: Activity as tolerated Discharge Diet: Consistent carbs, Low fat/chol Discharge Level of Care:: SNF - [facility]f
[2017-12-03 08:30] VITALS: BP 164/76
[2017-12-03] MEDS ORDERED: FERUMOXYTOL 510 MG in NORMAL SALINE 100 ML IV ONE (09:00)
== END 2017-12-03 10:25 | DRG 378 ==
LOC: ER 13:14 → MS 15:21 → UNDOADMOB 15:21 → OBSVTOIN 16:26
PROVIDERS: ADMIT Internal Medicine; ATTEND Internal Medicine
PROC: 30233N1 Transfusion of Nonautologous Red Blood Cells into Peripheral Vein, Percutaneous Approach (ICD-10-PCS; principal; 2017-11-28)
PROC: 0DB68ZX Excision of Stomach, Via Natural or Artificial Opening Endoscopic, Diagnostic (ICD-10-PCS; 2017-12-01)
PROC: 0DJD8ZZ Inspection of Lower Intestinal Tract, Via Natural or Artificial Opening Endoscopic (ICD-10-PCS; 2017-12-01)
DX: K29.01 Acute gastritis with bleeding (principal); N17.9 Acute kidney failure, unspecified; F02.81 Dementia in other diseases classified elsewhere, unspecified severity, with behavioral disturbance; Q61.02 Congenital multiple renal cysts; K29.80 Duodenitis without bleeding; K57.30 Diverticulosis of large intestine without perforation or abscess without bleeding; D50.9 Iron deficiency anemia, unspecified; G30.9 Alzheimer's disease, unspecified; E11.9 Type 2 diabetes mellitus without complications; F17.210 Nicotine dependence, cigarettes, uncomplicated; Z79.84 Long term (current) use of oral hypoglycemic drugs
CPT/HCPCS: 36415; 36430; 43239; 45378; 71046; 76770; 80048; 80053; 81001; 82272; 82607; 83540; 83550; 83880; 84443; 84484; 85014; 85018; 85025; 85610; 86850; 86900; 87081; 88305; 88312; 88313; 93005; 99285; P9016; Q0138

== ENCOUNTER 2018-01-02 10:03 | Inpatient (IN) | payer MEDICARE, OTHER ==
--- NOTE | 2018-01-02 10:49 | ERNOTE ---
Medical Problem HPI - Narrative Date of Service: 01/02/18 - General Time Seen by Provider: 01/02/18 10:15 Source: patient, RN notes reviewed, snf records, old records Exam Limitations: dementia - Immun/Allergies/Home Medications Immunizations: IMMUNIZATION HX History of Influenza Vaccine Yes Allergies/Adverse Reactions: Allergies No Known Allergies Allergy (Verified 01/02/18 10:36) Home Medications: HOME MEDICATIONS Cholecalciferol (Vitamin D3) [Vitamin D] 2,000 unit PO DAILY #30 capsule [Last Taken Unknown] Hydrophilic Ointment [Aquaphilic Ointment] 1 appl TP BID #1 jar 12/03/17 [Last Taken Unknown] Multivit-Min/Iron/Folic Acid/K [Multi-Day Plus Minerals Tablet] 1 each PO DAILY #30 tablet 12/03/17 [Last Taken Unknown] Omeprazole 40 mg PO DAILY #30 capsule. 12/03/17 [Last Taken Unknown] hydrALAZINE HCL [Apresoline] 25 mg PO TID #90 tab 12/03/17 [Last Taken Unknown] Carvedilol [Coreg] 3.125 mg PO BID 01/02/18 [Last Taken Unknown] Clonazepam 2 mg PO HS 01/02/18 [Last Taken Unknown] Furosemide [Lasix] 20 mg PO BID 01/02/18 [Last Taken Unknown] Mirtazapine [Remeron] 15 mg PO 1900 01/02/18 [Last Taken Unknown] Wheat Dextrin [Benefiber] 1 tbs PO BID 01/02/18 [Last Taken Unknown] clonazePAM [Klonopin] 0.5 mg PO BID 01/02/18 [Last Taken Unknown] - History of Present History Narrative: [place] [facility] [place]. Pt. has end stage dementia and is usually pleasantly confused but according to pt. nurse became an elopement risk at the beginning of November and had several episodes of combativeness and threatening the nurses. Nurse denies any recent waekness, SOB, increased swelling, fever, or other symptoms. Timing: intermittent Severity: moderate Modifying Factors - (Improves): Present: other - denies Modifying Factors - (Worsens): Present: other - denies Review of Systems - Review of Systems Constitutional: Present: no symptoms reported. Absent: fever, chills, weakness , fatigue, malaise, decreased activity level EYE: Present: no symptoms reported ENT: Present: no symptoms reported. Absent: nasal drainage, sore throat Respiratory: Present: no symptoms reported. Absent: shortness of breath, cough , wheezing Cardiology: Present: no symptoms reported. Absent: chest pain, syncope, edema - increased Gastrointestinal/Abdominal: Present: no symptoms reported. Absent: nausea, vomiting, diarrhea, abdominal pain, eating less, drinking less Genitourinary: Present: no symptoms reported. Absent: frequency, dysuria, decreased urinary output Musculoskeletal: Present: no symptoms reported. Absent: back pain, joint pain Skin: Present: no symptoms reported. Absent: rash, change in color Neurological: Present: no symptoms reported. Absent: headache, dizziness/light- headedness, numbness, tingling Endocrine: Present: no symptoms reported Hematologic/Lymphatic: Present: no symptoms reported Psych: Present: emotional problems, other - combativeness - Patient's Past Medical History Patient History - Medical: Alzheimer's Disease, Anxiety, Diabetes Type 2, Dementia, Depression Patient History - Cardiac/Respiratory: Hypertension, Hyperlipidemia Patient History - Cancer: No Hx of Cancer Patient History - Surgical Procedures: No surgical history Patient History - Other: None - Family History Mother Family History - Medical: , Diabetes Type 2 Family History - Cardiac/Respiratory: Hypertension, Hyperlipidemia Family History - Cancer: Colon Father Family History - Medical: Family History - Cancer: Lung - Social History Abuse History: No History of abuse Psych History: Hx of Anxiety, Hx of Depression - Immunizations History of Influenza Vaccine: Yes Physical Exam - Physical Exam General Appearance: Present: wd/wn, alert, no apparent distress Head Exam: Present: normal inspection, no evidence of injury, no tenderness w palpation Eye Exam: Normal inspection: bilateral, PERRL: bilateral, EOMI: bilateral Ears, Nose, Throat: Present: normal ENT inspection, normal pharynx. Absent: abnormal TM (R), abnormal TM (L), dry mucous membranes Neck: Present: normal inspection, nontender, supple, full range of motion. Absent: lymphadenopathy (R), lymphadenopathy (L) Respiratory: Present: no respiratory distress, normal breath sounds, no accessory muscle use, chest nontender, lungs clear. Absent: crackles, rales, rhonchi, stridor, wheezing Cardiovascular/Chest: Present: regular rate, rhythm, no murmur, normal peripheral pulses Gastrointestinal/Abdominal: Present: normal bowel sounds, nontender, nondistended, soft, no organomegaly, hernia - umbilical hernia measures 10 cm in diameter no new for hime Back Exam: Present: normal inspection, normal range of motion, no CVA tenderness , no vertebral tenderness Extremity Exam: Present: normal inspection, non-tender, normal range of motion, no edema Neurological Exam: Present: alert, no motor/sensory deficits, disoriented to time, disoriented to place, disoriented to situation, other - agitated and wandering. Absent: motor weakness Skin Exam: Present: warm/dry, pallor ED Progress - Date and Time Seen: Date and Time: 01/02/18 14:06 Called to discuss case with Dr Aguilar and she states taht she is not taking care of his anemia that the ribber is and would like for me to contact the ribber to take care of this [facility] case management to discuss with them and they will discuss plan with Dr Aguilar and help me find out who pt. ribber is and how to get in contact with them if needed. 01/02/18 14:[address] Garcia and he does not feel that he needs consulted on this case for the anemia as it is related to GI bleed and states that pt. can be treated here and then followed up as outpatient after his anemia is taken care of 01/02/18 14:[address] Aguilar and she accepts admission and wants fluid started at 125 per hour - Results and Orders Patient's Lab Results:: I have reviewed the patient's lab results. Results and Orders: Abnormal Lab Results 01/02/18 01/02/18 Range/Units 10:49 10:49 RBC 2.07 L (4.7-6.0) M/mm3 Hgb 6.6 L* D (13.5-18.0) gm/dL Hct 20.1 L* D (42.0-52.0) % MCH 31.9 H (27-31) pg RDW 15.7 H (11.5-14.0) % Monocytes % 9.1 H (0.0-9) % Eosinophils % 6.0 H (0.0-3.0) % Sodium 144 H (132-142) mmol/L Plasma Sodium 146 H (130-142) mmol/L Anion Gap 14.9 H (6.8-13.8) mmol/L BUN 73 H (6-23) mg/dL Creatinine 3.15 H (0.4-1.4) mg/dL Est GFR (Non-Af Amer) 21 L (60-130) mL/min BUN/Creatinine Ratio 23.2 H (9.0-21.6) Random Glucose 212 H (70-110) mg/dL B-Natriuretic Peptide 1904 H (5-350) pg/mL Albumin 2.9 L (3.4-5.0) gm/dl - Vital Signs Patient's Vital Signs:: I have reviewed the patient's vital signs. - EKG EKG: other - Sinus arrythmia with a 1st degree AVB EKG read: Interp. by me - X-Ray X-Ray #1 X-Ray: chest Interpretation: Reviewed by me X-ray Comments: No acute CP process, chronic changes - CT/Ultrasound CT/Ultrasound Narrative: Head CT negative for any acute intracrania process - Progress/Reassessment Progress:: Unchanged Departure Clinical Impression: Dementia Qualifiers: Dementia type: unspecified type Dementia behavioral disturbance: with behavioral disturbance Qualified Code(s): F03.91 - Unspecified dementia with behavioral disturbance Chronic renal failure Qualifiers: Chronic kidney disease stage: unspecified stage Qualified Code(s): N18.9 - Chronic kidney disease, unspecified Anemia Qualifiers: Anemia type: iron deficiency Iron deficiency anemia type: chronic blood loss Qualified Code(s): D50.0 - Iron deficiency anemia secondary to blood loss ( chronic) - Departure Disposition: Still a patient Condition: Fair
[2018-01-02 10:52] LABS: Mean Cell Volume 97.1 fl (78-100); Mean Corpuscular Hemoglobin 31.9 pg (27-31); Mean Corpuscular Hgb Conc 32.8 g/dl (32-36); Mean Platelet Volume 9.2 fl (6.0-9.5); Neutrophil # 4.3 K/mm3 (1.3-6.0); Neutrophil % 60.4 % (42-75.0); Platelet Count 184 K/mm3 (150-450); Red Blood Count 2.07 M/mm3 (4.7-6.0); Red Cell Distribution Width 15.7 % (11.5-14.0)
[2018-01-02 10:58] LABS: Hematocrit 20.1 % (42.0-52.0); Hemoglobin 6.6 gm/dL (13.5-18.0)
[2018-01-02] MEDS ORDERED: FUROSEMIDE 10 MG/ML VIAL IV ONE (10:58)
[2018-01-02] MEDS ORDERED: ZIPRASIDONE MESYLATE 20 MG VIAL IM ONE ×2 (11:10→11:30)
[2018-01-02 11:22] LABS: ALT 24 U/L (19-67); AST 25 U/L (0-48); Albumin * 2.9 gm/dl (3.4-5.0); Alkaline Phosphatase * 117 U/L (50-170); Anion Gap 14.9 mmol/L (6.8-13.8); BNP * 1904 pg/mL (5-350); BUN/Creatinine Ratio 23.2 (9.0-21.6); Bilirubin, Total 0.2 mg/dL (0.0-1.1); Blood Urea Nitrogen 73 mg/dL (6-23); Ca. Corrected For Albumin 9.2 mg/dL (8.4-10.2); Calcium * 8.6 mg/dL (7.9-10.9); Carbon Dioxide 27.5 mmol/L (24-32.6); Chloride 106 mmol/L (97-106); Glucose * 212 mg/dL (70-110); Magnesium 1.5 mg/dL (1.2-2.8); Phosphorus 3.9 mg/dL (2.2-4.2); Potassium 4.4 mmol/L (3.4-4.6); Sodium 144 mmol/L (132-142); Total Protein 6.2 gm/dL (6.2-8.2)
[2018-01-02 11:26] LABS: Troponin I Less than 0.017 ng/ml (0.00-0.10)
[2018-01-02 15:53] LABS: Urine Bilirubin Negative (NEGATIVE); Urine Blood Negative /ul (NEGATIVE); Urine Ketone Negative (NEGATIVE); Urine Nitrite Negative (NEGATIVE); Urine Protein Negative (NEGATIVE); Urine Urobilinogen Normal (NORMAL)
[2018-01-02 16:03] LABS: Urine Appearance Clear; Urine Color Yellow
[2018-01-02 16:04] LABS: Urine Bacteria None Seen; Urine RBC None Seen /hpf (0-5); Urine WBC None Seen /hpf (0-5)
[2018-01-02] MEDS ORDERED: FUROSEMIDE 10 MG/ML VIAL ONE (17:20)
[2018-01-02] MEDS ORDERED: BISACODYL 5 MG TABLET.DR PO PRN (17:53)
--- NOTE | 2018-01-02 18:37 | PN ---
Progess Note - Interim Narrative: ADMISSION NOTE: 72-year-old WM with a history of HTN, DM, HLD, dementia brought in from [facility] due to aggressive/combative behavior for the last few days. H/H at 6.6/20.1 BUN/CR 61/3.45. Patient admitted a month ago for similar complaints and underwent an EGD/colonoscopy on 12/01/16 which showed gastritis and duodenitis with evidence of chronic blood loss and a normal colonoscopy. Patient will be given 2 units of packed RBC and CBC will be checked in a.m. History unobtainable from patient due to dementia. Labs reviewed and patient examined. For H&P to be done by CORPORATE DIRECTOR.[Hospitalist].
--- NOTE | 2018-01-02 19:31 | HP ---
Chief Complaint - Chief Complaint Date of Service: 01/02/18 Time of Service: 19:30 Chief Complaint: Combative and aggresive behaviour History of Present Illness: 72 years old male patient resident of [facility] was brought o the hospital for evaluation due to combative and aggressive behaviour.Due to history of dementia information obtained from previous records, nurses and half-way records.PMH significant for Diabetes II, dementia, anxiety, depression, anemia, hypertension, hyperlipidemia and CKD. Pt was last hospitalized 11/28/17 for similar complaints. On this adm H/H 6.6/20.1. Bun/ Cre 61/3.45 within pt baseline. 11/28/17 his previous adm H/H 6.7/20.5 and a BUN/CR 75/4.33 respectively. By discharge H/H 10.9/31.1 S/P 4 UPRBC. 12/01/17 EGB/ Colonoscopy :Gastritic duodenitis with evidence chronic blood loss. Diverticulosis otherwise normal colonoscopy to the cecum. On this adm he was initiated on 2UPRBC, Lasix 20mg x1, On adm BNP 1904. CT head no acute changes and CXR no acute cardiopulmonary findings. - Patient's Past Medical History Patient History - Medical: Anxiety, Diabetes Type 2, Dementia - He follow up with neurologist, Depression, Other - umbilical hernia Patient History - Cardiac/Respiratory: Hypertension, Hyperlipidemia Patient History - Cancer: No Hx of Cancer Patient History - Surgical Procedures: No surgical history Patient History - Other: None - Family History Mother Family History - Medical: , Diabetes Type 2 Family History - Cardiac/Respiratory: Hypertension, Hyperlipidemia Family History - Cancer: Colon Father Family History - Medical: Family History - Cancer: Lung - Social History Living Situations: [facility] Abuse History: No History of abuse Psych History: Hx of Anxiety, Hx of Depression Does anyone smoke in the home?: No Smoking Status: Former smoker - quit 2009 Have you smoked in the past 12 months: No Do you dip or chew tobacco: No Patient requests Smoking Cessation Consult: No Initiate information on Smoking Cessation: No Alcohol Use: none Drug Use: none - Immunizations History of Influenza Vaccine: Yes Review Of Systems (GEN) - Review of Systems Additional Comments: Unable to provide information due to medical state and history of dementia Immunizations: IMMUNIZATION HX History of Influenza Vaccine Yes Allergies/Adverse Reactions: Allergies Allergy/AdvReac Type Severity Reaction Status Date / Time No Known Allergies Allergy Verified 01/02/18 10:36 Home Medications: HOME MEDICATIONS Cholecalciferol (Vitamin D3) [Vitamin D] 2,000 unit PO DAILY #30 capsule [Last Taken 01/02/18 07:00] Omeprazole 40 mg PO DAILY #30 capsule. 12/03/17 [Last Taken 01/02/18 07:00] hydrALAZINE HCL [Apresoline] 25 mg PO TID #90 tab 12/03/17 [Last Taken 01/02/18 07:00] Acetaminophen [Tylenol] 650 mg PO Q6H PRN 01/02/18 [Last Taken Unknown] Bisacodyl [Dulcolax] 10 mg PO Q48H PRN 01/02/18 [Last Taken Unknown] Carvedilol [Coreg] 3.125 mg PO BID 01/02/18 [Last Taken 01/02/18 08:00] Clonazepam 2 mg PO HS 01/02/18 [Last Taken 01/01/18 20:00] Docusate Sodium [Stool Softener] 50 mg PO HS 01/02/18 [Last Taken 01/01/18 20:00 ] Furosemide [Lasix] 20 mg PO BID 01/02/18 [Last Taken 01/02/18 08:00] Mirtazapine [Remeron] 15 mg PO HS 01/02/18 [Last Taken 01/01/18 20:00] Multivit,Tx with Iron,Minerals [Thera-M] 1 each PO DAILY 01/02/18 [Last Taken 07:00] Wheat Dextrin [Benefiber] 2 tbs PO BID 01/02/18 [Last Taken 01/02/18 07:00] clonazePAM [Klonopin] 0.5 mg PO BID 01/02/18 [Last Taken 01/02/18 08:00] Exam - Exam Vital Signs: Vital Signs - Last Taken Temp 36.6 C 01/02/18 17:59 Pulse 82 01/02/18 17:59 Resp 18 01/02/18 17:59 BP 132/72 01/02/18 17:59 Pulse Ox 99 01/02/18 17:59 Constitutional: Present: No distress, Elderly, Looks Older than stated age ENT Exam: Present: hearing grossly normal, dry mucous membranes Eye Exam: bilateral eye: normal inspection Neck: Present: full range of motion, trachea midline Back Exam: Present: no CVA tenderness Respiratory: Present: chest non-tender, normal breath sounds, no respiratory distress Cardiovascular/Chest: Present: normal peripheral pulses, regular rate, rhythm, systolic murmur, edema Peripheral Pulses: dorsalis-pedis (R): 2+, dorsalis-pedis (L): 2+ Abdomen: Present: Normal bowel sounds, soft, hernia - umbilical hernia soft Extremity: Present: normal range of motion, non-tender, normal inspection, lower extremity edema - pitting 3+ right much more swollen than left, slow capillary refill, swelling Skin Exam: Present: cool/dry Neurologic: Present: alert - to self Appearance: Present: disheveled, impaired insight, impaired recent memory, impaired remote memory Eye contact: Present: good eye contact Thoughts: Present: no apparent hallucination Diagnostic Studies: Laboratory Results WBC 7.0 K/mm3 (4.0-10.5) 01/02/18 10:49 RBC 2.07 M/mm3 (4.7-6.0) L 01/02/18 10:49 Hgb 6.6 gm/dL (13.5-18.0) L* D 01/02/18 10:49 Hct 20.1 % (42.0-52.0) L* D 01/02/18 10:49 MCV 97.1 fl (78-100) 01/02/18 10:49 MCH 31.9 pg (27-31) H 01/02/18 10:49 MCHC 32.8 g/dl (32-36) 01/02/18 10:49 RDW 15.7 % (11.5-14.0) H 01/02/18 10:49 Plt Count 184 K/mm3 (150-450) 01/02/18 10:49 MPV 9.2 fl (6.0-9.5) 01/02/18 10:49 Immature Gran % (Auto) 0.40 % (0.001-0.429) 01/02/18 10:49 Immature Gran # (Auto) 0.03 K/mm3 (0.000-0.0310) 01/02/18 10:49 Neutrophils % 60.4 % (42-75.0) 01/02/18 10:49 Lymphocytes % 23.5 % (20-51) 01/02/18 10:49 Monocytes % 9.1 % (0.0-9) H 01/02/18 10:49 Eosinophils % 6.0 % (0.0-3.0) H 01/02/18 10:49 Basophils % 0.6 % (0.0-1.0) 01/02/18 10:49 Nucleated RBC % 0.0 k/mm3 (0-1) 01/02/18 10:49 Neutrophils # 4.3 K/mm3 (1.3-6.0) 01/02/18 10:49 Lymphocytes # 1.7 k/mm3 (1.5-3.5) 01/02/18 10:49 Monocytes # 0.6 k/mm3 (0.0-1.0) 01/02/18 10:49 Eosinophils # 0.4 k/mm3 (0.0-0.7) 01/02/18 10:49 Absolute Basophils 0.0 k/mm3 (0.0-0.1) 01/02/18 10:49 Sodium 144 mmol/L (132-142) H 01/02/18 10:49 Plasma Sodium 146 mmol/L (130-142) H 01/02/18 10:49 Potassium 4.4 mmol/L (3.4-4.6) 01/02/18 10:49 Chloride 106 mmol/L (97-106) 01/02/18 10:49 Carbon Dioxide 27.5 mmol/L (24-32.6) 01/02/18 10:49 Anion Gap 14.9 mmol/L (6.8-13.8) H 01/02/18 10:49 BUN 73 mg/dL (6-23) H 01/02/18 10:49 Creatinine 3.15 mg/dL (0.4-1.4) H 01/02/18 10:49 Est GFR (Non-Af Amer) 21 mL/min (60-130) L 01/02/18 10:49 BUN/Creatinine Ratio 23.2 (9.0-21.6) H 01/02/18 10:49 Random Glucose 212 mg/dL (70-110) H 01/02/18 10:49 Lactic Acid, Venous 1.0 mmol/L (0.4-1.9) 01/02/18 13:33 Calcium 8.6 mg/dL (7.9-10.9) 01/02/18 10:49 Calcium Adj for Albumin 9.2 mg/dL (8.4-10.2) 01/02/18 10:49 Phosphorus 3.9 mg/dL (2.2-4.2) 01/02/18 10:49 Magnesium 1.5 mg/dL (1.2-2.8) 01/02/18 10:49 Total Bilirubin 0.2 mg/dL (0.0-1.1) 01/02/18 10:49 AST 25 U/L (0-48) 01/02/18 10:49 ALT 24 U/L (19-67) 01/02/18 10:49 Alkaline Phosphatase 117 U/L (50-170) 01/02/18 10:49 Ammonia Less than 17.0 mcmol/L (11-35) 01/02/18 12:05 Troponin I Less than 0.017 ng/ml (0.00-0.10) 01/02/18 10:49 B-Natriuretic Peptide 1904 pg/mL (5-350) H 01/02/18 10:49 Total Protein 6.2 gm/dL (6.2-8.2) 01/02/18 10:49 Albumin 2.9 gm/dl (3.4-5.0) L 01/02/18 10:49 Procalcitonin 0.07 ng/mL (0.05-0.50) 01/02/18 10:49 Urine Color Yellow 01/02/18 15:37 Urine Appearance Clear 01/02/18 15:37 Urine pH 7.0 pH (5.0-7.0) 01/02/18 15:37 Ur Specific [place] 1.010 SP.GR. (1.005-1.030) 01/02/18 15:37 Urine Protein Negative mg/dL (NEGATIVE) 01/02/18 15:37 Urine Glucose (UA) Negative mg/dL (NEGATIVE) 01/02/18 15:37 Urine Ketones Negative mg/dL (NEGATIVE) 01/02/18 15:37 Urine Blood Negative /ul (NEGATIVE) 01/02/18 15:37 Urine Nitrate Negative (NEGATIVE) 01/02/18 15:37 Urine Bilirubin Negative mg/dl (NEGATIVE) 01/02/18 15:37 Urine Urobilinogen Normal EU/dl (NORMAL) 01/02/18 15:37 Ur Leukocyte Esterase Negative /ul (NEGATIVE) 01/02/18 15:37 Urine RBC None seen /hpf (0-5) 01/02/18 15:37 Urine WBC None seen /hpf (0-5) 01/02/18 15:37 Ur Epithelial Cells None seen /hpf (0-5) 01/02/18 15:37 Urine Bacteria None seen (NONE) 01/02/18 15:37 Urine Culture Comments No culture indicated 01/02/18 15:37 Influenza Type A Ag Negative (NEGATIVE) 01/02/18 10:49 Influenza Type B Ag Negative (NEGATIVE) 01/02/18 10:49 Blood Type AB Positive 01/02/18 12:05 Antibody Screen Negative 01/02/18 12:05 Crossmatch See Detail 01/02/18 12:05 EGD/ Colonoscopy: Gastritic duodenitis with evidence chronic blood loss. Diverticulosis otherwise normal colonoscopy CT head no acute intracranial abnormality CXR:No acute cardiopulmonary findings. Assessment/Plan - Narrative Narrative: Anemia On adm H/H 6.6/20.1 2UPRBC and post H/H 1 hr after transfusion Continue to monitor CBC in am Continue with MVI with iron 12/01/16 EGD/ Colonoscopy-->Gastritis and duodenitis with evidence of chronic blood loss.Diverticulosis otherwise normal colonoscopy to cecum. Chronic Kidney disease stage 4 On adm BUN/Cre---->61/3.45 GFR 21, will hold off on gentle IVF hydration due to excessive edema. Pt have 3+ pititng edema to BLLE, Right with more edema than left. He was given lasix 20mg x1 in ER. Will possible have increased in Bun/Cre on repeated CMP due to Lasix use. Will Avoid nephrotoxic agents Monitor I/O and weight daily. Monitor CMP in am Retroperitoneal ultrasound: 11/29/17: 1. Multiple bilateral renal cysts. 2. Enlarged prostate. 3. No mass/nephrolithiasis or hydronephrosis. 4. Prostate volume 44 mL. Prevoid volume is 84 mL. Bladder wall is well distended with normal contour and wall thickness. Dementia Aggresive and combative behaviour while at the half-way CT head no acute intracranial abnormality CXR: No acute cardioplumonary findings. 11/28/17 On last adm the patient has seen neurology and workup has been negative , per family. Currently has not been on any medications. 11/28/17 TSH, B12 levels fairly normal. Remeron 15mg PO HS was initiated and continued at discharge. Continue with supportive care and periodic re-orientation. Chronic conditions- stable Diabetes Hypertension Hyperlipidemia Anxiety and depression Code status: DNR DVT prophylaxis: No DVT prophylaxis due to anemia. GI ppx: Protonix Time 45 minutes and case discussed with Dr Aguialr. - Assessment/Plan (1) Anemia Problem: Acute Qualifiers: Anemia type: iron deficiency Iron deficiency anemia type: chronic blood loss Qualified Code(s): D50.0 - Iron deficiency anemia secondary to blood loss (chronic) (2) CHF (congestive heart failure) Problem: Chronic Qualifiers: (3) Diabetes Problem: Chronic (4) Dementia Problem: Chronic Qualifiers: Dementia type: unspecified type Dementia behavioral disturbance: with behavioral disturbance Qualified Code(s): F03.91 - Unspecified dementia with behavioral disturbance (5) Gastritis and duodenitis Problem: Chronic (6) Chronic kidney disease (CKD) Problem: Chronic Qualifiers: Chronic kidney disease stage: stage 4 (severe) Qualified Code(s): N18.4 - Chronic kidney disease, stage 4 (severe)
[2018-01-02] MEDS ORDERED: MIRTAZAPINE 15 MG TABLET PO SCH (21:00)
[2018-01-02] MEDS ORDERED: PANTOPRAZOLE SODIUM 40 MG in NORMAL SALINE 100 ML IV SCH (21:00)
[2018-01-02] MEDS: MIRTAZAPINE 15 MG TABLET PO SCH ×2 (21:19→23:03)
[2018-01-02] MEDS: CHOLECALCIFEROL 1,000 UNIT CAPSULE PO SCH (21:19)
[2018-01-02] MEDS: MELATONIN 3,000 MCG TABLET PO SCH ×2 (21:20→23:03)
[2018-01-02 22:26] LABS: Hemoglobin 8.1 gm/dL (13.5-18.0)
[2018-01-03 05:54] LABS: Mean Cell Volume 91.2 fl (78-100); Mean Corpuscular Hemoglobin 31.3 pg (27-31); Mean Corpuscular Hgb Conc 34.4 g/dl (32-36); Mean Platelet Volume 9.3 fl (6.0-9.5); Neutrophil # 3.7 K/mm3 (1.3-6.0); Neutrophil % 63.4 % (42-75.0); Platelet Count 173 K/mm3 (150-450); Red Blood Count 2.49 M/mm3 (4.7-6.0); Red Cell Distribution Width 16.7 % (11.5-14.0); White Blood Count 5.8 K/mm3 (4.0-10.5)
[2018-01-03 05:59] LABS: Hematocrit 22.7 % (42.0-52.0); Hemoglobin 7.8 gm/dL (13.5-18.0)
[2018-01-03 06:13] LABS: Albumin * 2.8 gm/dl (3.4-5.0); Anion Gap 12.8 mmol/L (6.8-13.8); BUN/Creatinine Ratio 24.1 (9.0-21.6); Bilirubin, Total 0.4 mg/dL (0.0-1.1); Calcium * 8.4 mg/dL (7.9-10.9); Carbon Dioxide 26.7 mmol/L (24-32.6); Potassium 4.5 mmol/L (3.4-4.6); Total Protein 5.8 gm/dL (6.2-8.2)
[2018-01-03] MEDS: MULTIVIT-MIN/FA/LYCOPEN/LUTEIN 1 TAB TABLET PO SCH (08:36)
--- NOTE | 2018-01-03 11:32 | PN ---
Subjective - Date and Time Seen Date: 01/03/18 Time: 11:15 Subjective Narrative: Consult per [facility]. Objective Objective Narrative: Patient is an elderly gentleman with a history of dementia. He is pleasantly confused. Is often difficult to redirect but has not exhibited any aggression towards staff. Is ambulatory but unable to wander halls alone due to confusion. When asked how he was feeling, states that he is doing much better today and since he has had his tonsils removed, rarely gets sick. Also states that he is disappointed it is raining because he wants to plant tomatoes. Reviewed nursing notes and progress notes. Reviewed labs. - Review of Systems Generalized/Overall Review: Reports: No Symptoms Reported Neurological: Reports: Pre-existing Deficit - Vitals Vitals: Last Vital Signs Temp 36.9 C 01/03/18 11:24 Pulse 73 01/03/18 11:24 Resp 16 01/03/18 11:24 BP 147/74 01/03/18 11:24 Pulse Ox 100 01/03/18 11:24 - Exam Constitutional: Present: Alert, Elderly Neurologic: Present: alert, disoriented x 3 Appearance: Present: impaired insight, impaired recent memory, impaired remote memory Assessment/Plan Plan Narrative: Will discontinue Clonazepam and start on Quetiapine 25 mg morning and noon and Quetiapine 50 mg in the evening. Probable discharge back to care facility tomorrow. - Problems/Diagnosis (1) Dementia Problem: Chronic Qualifiers: Dementia type: unspecified type Dementia behavioral disturbance: with behavioral disturbance Qualified Code(s): F03.91 - Unspecified dementia with behavioral disturbance
[2018-01-03] MEDS: QUEtiapine FUMARATE 25 MG TABLET PO SCH (11:59)
[2018-01-03] MEDS ORDERED: QUEtiapine FUMARATE 25 MG TABLET PO ONE (16:35)
[2018-01-03] MEDS: CHOLECALCIFEROL 1,000 UNIT CAPSULE PO SCH ×2 (16:40→17:01)
[2018-01-03] MEDS: MELATONIN 3,000 MCG TABLET PO SCH (20:00)
[2018-01-03] MEDS: MIRTAZAPINE 15 MG TABLET PO SCH (20:01)
[2018-01-03] MEDS ORDERED: PANTOPRAZOLE SODIUM 40 MG in NORMAL SALINE 50 ML IV SCH (21:00)
[2018-01-03] MEDS ORDERED: QUEtiapine FUMARATE 25 MG TABLET PO SCH (21:00)
[2018-01-04] MEDS: QUEtiapine FUMARATE 25 MG TABLET PO SCH ×2 (06:04→11:41)
[2018-01-04 06:23] LABS: Hematocrit 27.2 % (42.0-52.0); Hemoglobin 9.1 gm/dL (13.5-18.0); Mean Cell Volume 92.8 fl (78-100); Mean Corpuscular Hemoglobin 31.1 pg (27-31); Mean Corpuscular Hgb Conc 33.5 g/dl (32-36); Mean Platelet Volume 9.4 fl (6.0-9.5); Neutrophil # 2.7 K/mm3 (1.3-6.0); Neutrophil % 54.7 % (42-75.0); Platelet Count 187 K/mm3 (150-450); Red Blood Count 2.93 M/mm3 (4.7-6.0); Red Cell Distribution Width 15.8 % (11.5-14.0)
[2018-01-04] MEDS: MULTIVIT-MIN/FA/LYCOPEN/LUTEIN 1 TAB TABLET PO SCH (09:47)
--- NOTE | 2018-01-04 13:30 | DS ---
(1) Anemia Problem: Acute Qualifiers: Anemia type: iron deficiency Iron deficiency anemia type: unspecified iron deficiency Qualified Code(s): D50.9 - Iron deficiency anemia, unspecified (2) Dementia Problem: Chronic Qualifiers: Dementia type: unspecified type Dementia behavioral disturbance: with behavioral disturbance Qualified Code(s): F03.91 - Unspecified dementia with behavioral disturbance (3) CKD (chronic kidney disease) stage 4, GFR 15-29 ml/min Problem: Chronic (4) HTN (hypertension) Problem: Chronic Qualifiers: Hypertension type: essential hypertension Qualified Code(s): I10 - Essential (primary) hypertension Description of Stay: DATE OF ADMISSION: 01/02/2018. DATE OF DISCHARGE: 01/04/2018. DIAGNOSTICS: CT HEAD W/O 01/02/18 DISCHARGE SUMMARY: Robinson Navarrete is a 72 year old with a H/O HTN, T2DM, HLD, CKD stage IV, dementia brought in from [facility] due to aggressive and combative behaviour for the last few days. CT of head w/o in the ER did not show any acute pathology. Patient had H&H of 6.6/20.1 on admission. He was found to be anemic and admitted with similar complaints approximately a month ago. He underwent an EGD /colonoscopy on 12/01/16 which showed gastritis and duodenitis with evidence of chronic blood loss and had a normal colonoscopy. BUN/CR was 61/3.45 on admission which is chronic in nature. Patient was given a total of 4 units of packed RBC. He was seen by Piedad BABCOCK from psychiatry who suggested placing the patient on Seroquel 25 mg at 0600 hrs., 1200 hrs. and 50 mg at bedtime. The patient was walked several times a day and did well on this regimen. His H&H was 7.8/27.7[01/03/18] after 2 units PRBC and 9.1/27.2[01/04/18] after a total of 4 units PRBC. Patient was discharged in a stable condition. Procedures Performed: none Discharge Disposition: [facility] Disposition: Intermediate Care Facility [facility] Condition: Undetermined Discharge Activity: Activity as tolerated Discharge Diet: Low fat/chol, High Fiber, Renal Failure Consultation Done:: Piedad Dudley Additional Patient Instructions (free text): INSTRUCTIONS TO [facility]: PLEASE NOTE THE TIMING OF THE MEDICATIONS: Vitamin D3 2000 units and multivitamin to be taken at lunchtime. Omeprazole to be taken 30 minutes before breakfast. Furosemide 20 mg at 8 AM and 2 PM. Benefiber/Metamucil 1 tablespoon mixed in 8 ounces of water twice a day. Please make sure patient drinks about 8 glasses of water/24 hours[one glasses 8 ounces of water]. Aspiration precautions.[Upright for 30 minutes after each meal]. Elevate feet at bedtime while sleeping by 6 inches[can use a wedge]. Oral care after meals. MEDICATIONS DC'D: Clonazepam. Docusate sodium. mirtazipine. NEW MEDICATIONS: Seroquel. Senna. LAB- CBC,CMP 01/12/18 Prescriptions (Any new or edited meds): QUEtiapine FUMARATE [Seroquel] 50 mg PO HS #30 tablet QUEtiapine FUMARATE [Seroquel] 25 mg PO BID@0700,1200 #60 tablet Sennosides [Senokot] 8.6 mg PO HS #30 tablet Complete Home Medications List: Complete Home Medication List: Cholecalciferol (Vitamin D3) [Vitamin D3] 2,000 unit PO DAILY #30 capsule Omeprazole 40 mg PO DAILY #30 capsule. 12/03/17 Acetaminophen [Tylenol] 650 mg PO Q6H PRN 01/02/18 Bisacodyl [Dulcolax] 10 mg PO Q48H PRN 01/02/18 Carvedilol [Coreg] 3.125 mg PO BID 01/02/18 Furosemide [Lasix] 20 mg PO BID 01/02/18 Multivit,Tx with Iron,Minerals [Thera-M] 1 each PO DAILY 01/02/18 Wheat Dextrin [Benefiber] 2 tbs PO BID 01/02/18 QUEtiapine FUMARATE [Seroquel] 25 mg PO BID@0700,1200 #60 tablet 01/04/18 QUEtiapine FUMARATE [Seroquel] 50 mg PO HS #30 tablet 01/04/18 Sennosides [Senokot] 8.6 mg PO HS #30 tablet 01/04/18 Amb Orders for Discharge: CBC Time Frame: 01/12/18, Location: Determined By Patient Comprehensive Metabolic Panel Time Frame: 01/12/18, Location: Determined By Patient
[2018-01-04 16:46] VITALS: BP 135/71
--- NOTE | 2018-01-08 12:48 | PN ---
Subjective - Date and Time Seen Date: 01/03/18 Time: 10:00 Subjective Narrative: Patient is alert, not oriented to time place or person. Does not recall the reason why he is in the hospital. Requires walking several times around the Courtyard to be calmed. Denies any complaints. Objective - Review of Systems Generalized/Overall Review: Reports: No Symptoms Reported - Vitals Vitals: Vital signs 01/03/18 08:59 Temperature 36.8 C Pulse Rate 89 Resp. rate. 14 Blood Pressure 130/80 O2 Sat. PO 99% RA - Exam Constitutional: Present: Elderly, Thin and frail - energetic, alert and confused. ENT Exam: Present: hearing grossly normal Neck: Present: normal inspection, trachea midline Respiratory: Present: lungs clear, normal breath sounds Cardiovascular/Chest: Present: regular rate, rhythm. Absent: tachycardia Abdomen: Present: Normal bowel sounds, soft, nontender Extremity: Present: lower extremity edema - 2+ edema. Skin Exam: Present: warm/dry, pallor Appearance: Present: impaired insight, impaired recent memory, impaired remote memory Assessment/Plan Plan Narrative: 1. Anemia: Iron deficiency: Required 2 units of packed RBC. H&H currently 2.8/27.7. Patient will be transferred for 2 more units of packed RBC. EGD/colonoscopy negative 11/2017. 2. Dementia with aggressive behavior: Having Piedad Dudley see the patient today. 3. Hypertension: Currently on hydralazine 25 mg 3 times a day carvedilol 3.125 mg twice a day. 4. CKD stage III/IV: Patient will be seen by nephrology. - Problems/Diagnosis (1) Anemia Problem: Acute Qualifiers: Anemia type: iron deficiency Iron deficiency anemia type: unspecified iron deficiency Qualified Code(s): D50.9 - Iron deficiency anemia, unspecified (2) Dementia Problem: Chronic Qualifiers: Dementia type: unspecified type Dementia behavioral disturbance: with behavioral disturbance Qualified Code(s): F03.91 - Unspecified dementia with behavioral disturbance (3) CKD (chronic kidney disease) stage 4, GFR 15-29 ml/min Problem: Chronic (4) HTN (hypertension) Problem: Chronic Qualifiers: Hypertension type: essential hypertension Qualified Code(s): I10 - Essential (primary) hypertension
== END 2018-01-04 16:30 | DRG 884 ==
LOC: ER 10:03 → MS 14:34 → OBSVTOIN 01-03 10:07
PROVIDERS: ADMIT Internal Medicine; ATTEND Internal Medicine
PROC: 30233N1 Transfusion of Nonautologous Red Blood Cells into Peripheral Vein, Percutaneous Approach (ICD-10-PCS; principal; 2018-01-02)
DX: Z87.891 Personal history of nicotine dependence; F03.91 Unspecified dementia, unspecified severity, with behavioral disturbance; I12.9 Hypertensive chronic kidney disease with stage 1 through stage 4 chronic kidney disease, or unspecified chronic kidney disease; D50.0 Iron deficiency anemia secondary to blood loss (chronic); E11.9 Type 2 diabetes mellitus without complications; K29.70 Gastritis, unspecified, without bleeding; N18.4 Chronic kidney disease, stage 4 (severe)
CPT/HCPCS: 36415; 36430; 70450; 71045; 80053; 81001; 82140; 83605; 83735; 83880; 84100; 84145; 84484; 85014; 85018; 85025; 86850; 86900; 87081; 87400; 93005; 96372; 96374; 99285; G0378; P9016